=== PATIENT | female | born 1945 | race Caucasian/White ===

== ENCOUNTER 2019-09-30 13:10 | IRF | payer MEDICARE, SELFPAY ==
--- NOTE | ~2019-09-30 | US_ITS ---
US venous doppler [facility] DATE: 10/07/2019 13:58 INDICATION: Left leg pain TECHNIQUE: Real-time and color flow imaging and Doppler analysis of the veins of the left lower extre mity COMPARISON: None FINDINGS: The greater saphenous vein is patent. There is spontaneous and phasic flow and normal augme ntation and color flow signal and normal compression of the deep veins of the left lower extremity. IMPRESSION: No evidence of deep venous thrombosis of left lower extremity Reviewed, dictated and finalized at Location [facility]. Reviewed, dictated and finalized at location A.
--- NOTE | ~2019-09-30 | XR_ITS ---
EXAMINATION: XR_RIBSBI_CR DATE: 10/08/2019 10:54 INDICATION: Posttraumatic pain at the bilateral anterior inferior ribs TECHNIQUE: 3 views of the right ribs and 3 views of the left ribs were obtained. COMPARISON: None FINDINGS: No rib fractures identified. Lungs are clear with no focal airspace opacities, pulmonary edema, pleur al effusion or pneumothorax. The cardiomediastinal silhouette is normal. Atherosclerotic calcific a c yst along the aorta, splenic artery and coronary arteries with likely prior coronary artery stenting. Large-bore dual-lumen right internal jugular central venous catheter with distal tip near the superi or cavoatrial junction. IMPRESSION: 1. No rib fracture or acute cardiopulmonary disease. Reviewed, dictated and finalized at location A.
[2019-09-30 13:00] VITALS: BMI 32.5
--- NOTE | 2019-09-30 13:10 | ADMGEN ---
This patient, Kiara Lebron, was admitted to [facility] Room 221-02. Patient/family oriented to hospital policies and general routines including ID bracelet, bed and alarms, visiting hours, pain management, procedures, bathroom and other care routines, personal items, smoking policy, room service/diet, and visiting hours. Valuables list has been completed. Information on how to activate the Rapid Response Team has been discussed. Patient/Family are encouraged to report perceived risks to care and to ask questions if they do not understand what they are told or what they should do.
[2019-09-30 13:48] VITALS: BP 118/64; PULSE 78; RESP 18; TEMP 36.8; O2SAT 97
[2019-09-30] MEDS: APIXABAN 2.5 MG TABLET PO (17:18)
[2019-09-30] MEDS: FUROSEMIDE 80 MG TABLET PO (17:18)
[2019-09-30] MEDS: TRIAMCINOLONE ACET 0.1% CREAM 15 GM TUBE 1 APPLIC TOPICAL (17:18)
[2019-09-30 17:21] LABS: Glucose Point of Care 116 (65-105)
[2019-09-30] MEDS: ATORVASTATIN 40 MG TABLET PO (20:46)
[2019-09-30] MEDS: GABAPENTIN 100 MG CAPSULE PO (20:46)
[2019-09-30] MEDS: cloNIDine HCL 0.1 MG TABLET PO (20:46)
[2019-09-30] MEDS: MELATONIN 5 MG TABLET PO (20:46)
[2019-09-30] MEDS: ACETAMINOPHEN 500 MG TABLET PO (20:47)
[2019-09-30] MEDS: hydrALAZINE HCL 25 MG TABLET PO (20:47)
[2019-09-30 21:09] LABS: Glucose Point of Care 114 (65-105)
[2019-09-30 22:00] VITALS: BP 101/51; PULSE 75; RESP 18; TEMP 35.8; O2SAT 98
[2019-10-01] MEDS: ACETAMINOPHEN 500 MG TABLET PO (04:41)
[2019-10-01 06:00] VITALS: BP 101/46; PULSE 66; RESP 18; TEMP 35.2; O2SAT 100
[2019-10-01 06:11] LABS: Basophils Percent Auto 0.6 % (0.2-1.2); Eosinophils Absolute Auto 0.3 K/mm3 (0-0.3); Eosinophils Percent Auto 3.6 % (0-4.4); Hematocrit 25.6 % (37.0-47.0); Hemoglobin 8.2 g/dL (12.0-15.0); Immature Granulocyte Absolute 0.06 K/mm3 (0.00-0.031); Immature Granulocyte Percent A 0.9 % (0-0.5); Lymphocytes Absolute Auto 0.64 K/mm3 (0.9-3.2); Lymphocytes Percent Auto 9.1 % (18.3-44.2); Mean Corpuscular Hemoglobin 32.4 pg (26-34); Mean Corpuscular Volume 101.2 fl (80-100); Mean Platelet Volume 9.4 fl (7.4-10.4); Monocytes Absolute Auto 0.7 K/mm3 (0.1-0.6); Monocytes Percent Auto 10.3 % (2.6-8.5); Neutrophils Absolute Auto 5.3 K/mm3 (1.3-6.7); Neutrophils Percent Auto 75.5 % (45.5-73.1); Platelet Count Result 321 k/mm3 (150-375); Red Blood Count 2.53 M/mm3 (4.2-5.4); Red Cell Distribution Width 16.4 % (11.5-14.5)
[2019-10-01 06:45] LABS: Blood Urea Nitrogen 30 mg/dL (7-17); Calcium 8.7 mg/dL (8.4-10.2); Carbon Dioxide 29 mmol/L (22-30); Chloride 87 mmol/L (98-107); Estimated CRCL calculation 10 ml/min; Estimated Glomerular Filt Rate 11; Glucose 75 mg/dL (65-105); Potassium 4.1 mmol/L (3.4-5.0); Sodium 125 mmol/L (137-145)
[2019-10-01 07:16] LABS: Glucose Point of Care 74 (65-105)
[2019-10-01] MEDS: glipiZIDE 5 MG TABLET 10 MG PO (08:47)
[2019-10-01] MEDS: CHOLECALCIFEROL 1,000 UNIT TABLET 2000 UNITS PO (08:48)
[2019-10-01] MEDS: ANASTROZOLE (*CHEMO) 1 MG TABLET PO (08:48)
[2019-10-01] MEDS: SEVELAMER CARBONATE 800 MG TABLET PO (08:48)
[2019-10-01] MEDS: APIXABAN 2.5 MG TABLET PO ×2 (08:48→17:42)
[2019-10-01] MEDS: CYANOCOBALAMIN 1,000 MCG TABLET 1000 MCG PO (08:49)
[2019-10-01 08:50] VITALS: PULSE 66
[2019-10-01] MEDS: FUROSEMIDE 80 MG TABLET PO ×2 (08:50→17:42)
[2019-10-01] MEDS: PANTOPRAZOLE 40 MG TABLET PO (08:50)
[2019-10-01] MEDS: METOPROLOL SUCCINATE EXT REL 100 MG TABCR PO (08:50)
[2019-10-01] MEDS: hydrALAZINE HCL 25 MG TABLET PO ×2 (08:50→20:53)
[2019-10-01] MEDS: CLOPIDOGREL BISULFATE 75 MG TABLET PO (08:50)
[2019-10-01] MEDS: ISOSORBIDE MONONITRATE 60 MG TAB.ER.24H PO (08:50)
[2019-10-01] MEDS: TRIAMCINOLONE ACET 0.1% CREAM 15 GM TUBE 1 APPLIC TOPICAL ×2 (08:51→17:42)
[2019-10-01] MEDS: cloNIDine HCL 0.1 MG TABLET PO ×2 (08:59→20:57)
[2019-10-01] MEDS: polyethylene glycoL 3350 17 GM POWD.PACK PO (08:59)
[2019-10-01] MEDS: VITAMIN B CMPLX/VIT C/FOLIC AC 1 CAPSULE 1 CAP PO (09:04)
--- NOTE | 2019-10-01 10:00 | WPDREHABHP ---
H&P: HPI History of Present Illness Chief complaint: Right BKA Narrative: Kiara Lebron is a 74 year old female HISTORY OF PRESENT ILLNESS: The patient's primary rehab impairment category is amputation lower extremity The etiologic diagnosis is diabetic right foot infection/cellulitis with dry gangrene. I saw this patient [id number] on October 01, 2019 at 10:00 a.m. The patient is a 74-year-old white woman with a past medical history of end-stage renal disease on hemodialysis with the temporary catheter or Port-A-Cath at the right upper chest however also has what is going to be a permanent dialysis catheter in the left arm which has not been activated. Patient also has a history of coronary artery disease peripheral vascular disease and chronic obstructive pulmonary disease who initially presented to [facility] on September 10, 2019 with concern of progressing right lower extremity diabetic foot infection. The patient had an angiogram with Dr. Brock Nunn on September 05, 2019 and since that time the patient noticed that the digits 2325 in the right lower extremity had become increasingly necrotic erythematous and painful. The patient reported close the following with the wound care. The patient was admitted and started on vancomycin and Zosyn. The wound care nephrology and vascular surgery were consulted. Nephrology following patient for hemodialysis recommendations. The patient is on a Saturday and Saturday notation the patient's medications are are renally dosed. She has stage II wound to the right buttocks. Vascular each surgery performed a right 2nd 4th and 5th toe amputation on September 16, 2019. The surgical site did not show proper healing. The patient underwent finally an angiogram on September 21, 2019 that showed occlusion in the right anterior and posterior tibial arteries so vascular surgery then recommended a right [id number] amputation. IV Zosyn was discontinued on September 22, 2019. The patient underwent surgical amputation on September 27, [address] Brock Nunn. The patient is nonweightbearing to the right lower extremity and patient has a wound to the left lower extremity covered with a foam dressing. Eliquis and Plavix were restarted on September 28, 2019. The patient's hospital course has been significant for acute postoperative pain acute blood-loss anemia, wound care, hemodialysis, electrolyte imbalance and hypertension. It is worth mentioning the sodium is still running about 125 however the potassium is 4.1 the patient's BUN and creatinine obviously are high because of end-stage renal disease. The patient is discharged to us with Eliquis and Plavix Plavix and will remain on both The patient has not traveled outside the [place] or had contact with someone who is ill that has traveled outside the use in the past 21 days. The patient's has not traveled to an area of the [place] that is experiencing no transmission of the Coronavirus and has not had close personal contact with anyone that has. The patient does not have a fever. The patient is not experiencing any lower respiratory symptoms. Therapy was initiated at the acute care facility and the patient transferred to us from [facility] on September 30, 2019 on FALLS OR SURGERIES: The patient has had no major surgeries in the 100 days prior to admission. They had no falls in the past year. They had falls with injury in the past year. the patient has had 1 major surgery in the 100 days prior to admission. The patient has had 2 or more falls in the past year. The patient has had no falls with injury in the past PAST MEDICAL HISTORY: anemia, breast cancer, coronary artery disease, non ST elevation [place], congestive heart failure, chronic respiratory failure, chronic obstructive pulmonary disease, diabetes mellitus with peripheral neuropathy, end-stage renal disease on hemodialysis, essential hypertension, left upper extremity fistula, harm on replacement therapy, hype
[2019-10-01] MEDS: PROCHLORPERAZINE MALEATE 5 MG TABLET PO (10:52)
[2019-10-01 12:08] LABS: Glucose Point of Care 57 (65-105)
[2019-10-01 12:08] LABS: Glucose Point of Care 46 (65-105)
[2019-10-01 13:16] VITALS: BMI 31.6
[2019-10-01 13:44] LABS: Glucose Point of Care 60 (65-105)
[2019-10-01 13:44] LABS: Glucose Point of Care 80 (65-105)
[2019-10-01 14:00] VITALS: BP 134/44; PULSE 72; RESP 20; TEMP 36.6; O2SAT 100
--- NOTE | 2019-10-01 16:04 | PCCCNOTE ---
On 10/01/19, the student, [Ronen Muhammad ], provided care and completed [facility] documentation on this patient. I have reviewed the student's documentation and agree with the findings.
--- NOTE | 2019-10-01 16:42 | RPD ---
INDIVIDUALIZED PLAN OF CARE FOR Kiara Lebron Brief Synthesis of Pre-Admission Screen, Post-Admission Evaluation and Therapy Evaluations: The patient presents to rehab with diabetic right foot infection/cellulitis with dry gangrene. 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 The patient?s needs will be best met in an intensive program vs. at a lower level of care. The patient requires physician services for medical oversight, management of post-op complications in the setting of present comorbidities, management of diabetes mellitus diagnosis, management of hemodialysis, and pain management. The patient requires nursing services for anticoagulation therapy, diabetes training, DVT prophylactics, IV administration, infection protection, medication management and education, pressure relief, and wound care Deficits include:ADLs, Balance, Endurance, Family Training/Education, Mobility, Pain Management, ROM, Safety, Strength, and Transfers. Inside Sales Professional/Case Management for: Discharge Planning and Patient/Family Counseling Physical Therapy: 5 days per week for 90 minutes. Treatments may include: Therapeutic Exercise, Gait Training, Neuromuscular Re-education, Transfer Training, Community Reintegration, Bed Mobility, Patient/Family Education, Wheelchair Mobility Group Therapy/Concurrent Therapy Rationales: -Improve attention span during functional activities in a distracted environment. -Enhance problem solving and/or adequate judgment skills during functional activities in a distracted environment. -Promote increased safety awareness in a distracted environment to reduce fall risk with functional tasks, transfers, and ambulation to allow a more safe, self-sufficient return to the home environment. -Improve dynamic balance skills to promote safety and independence with functional activities in a distracted environment for maximum gain. Occupational Therapy: 5 days per week for 90 minutes. Treatments may include: Therapeutic Exercise, Therapeutic Activity, Cognitive Training, Self-Care Transfer Training, Community Reintegration, Home Management, Patient/Family Education, Wheelchair Mobility Training, Energy Conservation Training Group Therapy/Concurrent Therapy Rationales: -Allow therapist to observe and teach generalization and carry-over of skills learned in individual therapy. -Enhance problem solving and sequencing skills during therapeutic activities in a distracted environment. -Promote increased safety awareness in a realistic setting to reduce fall risk with functional tasks due to visual and verbal distractions. -Increase functional level with ADLs, ADL transfers and use of adaptive equipment through therapeutic activities with others while promoting safety to allow a more safe, self-sufficient return home. Medical Prognosis: Good Anticipated Length of Stay: 12 days Rehab Goals: Eating Goal: 06-Independent Oral Hygiene Goal: 06-Independent Toileting Hygiene Goal: 03-Partial/Moderate Assistance Shower/Bathe Self Goal: 03-Partial/Moderate Assistance Upper Body Dressing Goal: 06-Independent Lower Body Dressing Goal: 03-Partial/Moderate Assistance Putting On/Taking Off Footwear Goal: 04-Supervision or Touching Assistance Rolling Left and Right Goal: 06-Independent Sit to Lying Goal: 06-Independent Lying to Sitting on Side of Bed Goal: 06-Independent Sit to Stand Goal: 03-Partial/Moderate Assistance Chair/Uqz-tj-Wepnl Transfer Goal: 06-Independent Toilet Transfer Goal: 03-Partial/Moderate Assistance Car Transfer Goal: 03-Partial/Moderate Assistance Walk 10' Goal: 03-Partial/Moderate Assistance Walk 50' with Two Turns Goal:
[2019-10-01 17:19] LABS: Glucose Point of Care 46 (65-105)
[2019-10-01] MEDS: GABAPENTIN 100 MG CAPSULE PO (20:53)
[2019-10-01] MEDS: ATORVASTATIN 40 MG TABLET PO (20:55)
[2019-10-01 22:00] VITALS: BP 101/40; PULSE 65; RESP 18; TEMP 36.6; O2SAT 92
[2019-10-01 22:10] LABS: Glucose Point of Care 76 (65-105)
[2019-10-01 22:10] LABS: Glucose Point of Care 52 (65-105)
[2019-10-01 23:48] LABS: Glucose Point of Care 50 (65-105)
[2019-10-02] VITALS (17 sets, daily range): BP systolic 105–156; BP diastolic 40–69; PULSE 66–86; RESP 16–20; TEMP 36.2–37.5; O2SAT 96–100; BMI 33.1
[2019-10-02 00:23] LABS: Glucose Point of Care 75 (65-105)
[2019-10-02 03:16] LABS: Glucose Point of Care 72 (65-105)
[2019-10-02 04:04] LABS: Glucose Point of Care 53 (65-105)
[2019-10-02 04:56] LABS: Glucose Point of Care 69 (65-105)
[2019-10-02 05:26] LABS: Glucose Point of Care 108 (65-105)
[2019-10-02 06:57] LABS: Glucose Point of Care 62 (65-105)
[2019-10-02 07:20] LABS: Glucose Point of Care 51 (65-105)
[2019-10-02 08:37] LABS: Glucose Point of Care 90 (65-105)
[2019-10-02] MEDS: SEVELAMER CARBONATE 800 MG TABLET PO (09:47)
[2019-10-02] MEDS: CLOPIDOGREL BISULFATE 75 MG TABLET PO (09:48)
[2019-10-02] MEDS: CHOLECALCIFEROL 1,000 UNIT TABLET 2000 UNITS PO (09:48)
[2019-10-02] MEDS: PROCHLORPERAZINE MALEATE 5 MG TABLET PO ×2 (09:48→19:12)
[2019-10-02] MEDS: ANASTROZOLE (*CHEMO) 1 MG TABLET PO (09:49)
[2019-10-02] MEDS: ISOSORBIDE MONONITRATE 60 MG TAB.ER.24H PO (09:49)
[2019-10-02] MEDS: METOPROLOL SUCCINATE EXT REL 100 MG TABCR PO (09:49)
[2019-10-02] MEDS: APIXABAN 2.5 MG TABLET PO ×2 (09:49→19:11)
[2019-10-02] MEDS: CYANOCOBALAMIN 1,000 MCG TABLET 1000 MCG PO (09:49)
[2019-10-02] MEDS: FUROSEMIDE 80 MG TABLET PO ×2 (09:49→19:11)
[2019-10-02] MEDS: hydrALAZINE HCL 25 MG TABLET PO ×2 (09:49→19:11)
[2019-10-02] MEDS: VITAMIN B CMPLX/VIT C/FOLIC AC 1 CAPSULE 1 CAP PO (09:50)
[2019-10-02] MEDS: PANTOPRAZOLE 40 MG TABLET PO (09:50)
[2019-10-02] MEDS: TRIAMCINOLONE ACET 0.1% CREAM 15 GM TUBE 1 APPLIC TOPICAL ×2 (09:50→19:11)
[2019-10-02] MEDS: cloNIDine HCL 0.1 MG TABLET PO ×2 (09:56→19:11)
[2019-10-02] MEDS: polyethylene glycoL 3350 17 GM POWD.PACK PO (09:56)
[2019-10-02 10:33] LABS: Glucose Point of Care 55 (65-105)
[2019-10-02 10:33] LABS: Glucose Point of Care 54 (65-105)
[2019-10-02 10:33] LABS: Glucose Point of Care 46 (65-105)
[2019-10-02 11:17] LABS: Glucose Point of Care 71 (65-105)
[2019-10-02 12:06] LABS: Glucose Point of Care 82 (65-105)
[2019-10-02 12:59] LABS: Hepatitis B Surface Antigen Negative (Negative)
[2019-10-02 13:16] LABS: Hepatitis B Surface Antibody > 1000.00 s/c
[2019-10-02 13:18] LABS: Glucose Point of Care 70 (65-105)
--- NOTE | 2019-10-02 13:38 | WPDNEURORHBP ---
Subjective Date/time seen: 10/02/19 13:38 this 74-year-old woman is here primarily because of right BKA and also with the ischemic changes in the left foot which is stable she denies any headache nausea vomiting chest pain shortness of breath fever chills or sore throat her blood pressure is running little be high however it may be her baseline Review of Systems Review of Systems: All systems reviewed & are unremarkable except as noted in HPI and below Functional Status Transfers Ability Ability to Transfer In/Out of Chair: Maximum Assistance X 1 Exam Const: General: comfortable and no acute distress HENMT: General nose exam: Normal nares present Mouth: Yes moist mucous membranes Eyes: General: appearance normal, both eyes and all related structures Neck: Neck: supple and no JVD Resp: Effort & Inspection: normal respiratory effort Auscultation: clear to auscultation bilaterally Cardio: Rate: regular rate Rhythm: regular rhythm GI: GI Palp: Yes Soft to palpation Auscultation: normal bowel sounds Skin: General skin exam: normal color and no rashes or lesions noted Neuro: Other: patient is awake alert well oriented has evidence of peripheral neuropathy right BKA and ischemic changes of the left foot which is stable no sign of infection is noted Extrem: Other: evidence of peripheral neuropathy and peripheral vascular disease and right BKA and ischemic changes of the left foot Psych: Mental Status: mental status grossly normal Objective Data Vital Signs Vital Signs: Vital Signs - 24 hr 10/02/19 14:00 10/02/19 14:20 10/02/19 14:41 Temperature 36.8 C 37.1 C Pulse Rate 76 73 71 Respiratory Rate 20 16 Blood Pressure 123/40 L 130/50 L 125/51 L Pulse Oximetry 96 10/02/19 14:45 10/02/19 15:00 10/02/19 15:15 Temperature Pulse Rate 73 71 76 Respiratory Rate Blood Pressure 105/54 L 108/48 L 144/53 H Pulse Oximetry 10/02/19 15:30 10/02/19 16:00 10/02/19 16:30 Temperature Pulse Rate 73 78 78 Respiratory Rate Blood Pressure 144/45 H 151/67 H 135/51 L Pulse Oximetry 10/02/19 16:45 10/02/19 17:00 10/02/19 17:30 Temperature Pulse Rate 79 86 81 Respiratory Rate Blood Pressure 136/52 L 146/58 H 156/61 H Pulse Oximetry 10/02/19 17:45 10/02/19 17:50 10/02/19 22:00 Temperature 37.1 C 37.5 C Pulse Rate 82 82 82 Respiratory Rate 20 20 Blood Pressure 148/60 H 152/66 H 121/69 Pulse Oximetry 97 10/03/19 06:00 10/03/19 09:11 10/03/19 12:10 Temperature 36.7 C 37.0 C Pulse Rate 88 88 75 Respiratory Rate 16 16 Blood Pressure 131/55 L 127/51 L Pulse Oximetry 100 10/03/19 12:20 10/03/19 12:30 10/03/19 12:45 Temperature Pulse Rate 76 77 73 Respiratory Rate Blood Pressure 127/45 L 152/56 H 158/58 H Pulse Oximetry 10/03/19 13:00 10/03/19 13:15 10/03/19 13:30 Temperature Pulse Rate 74 78 79 Respiratory Rate Blood Pressure 171/56 H 174/64 H 169/59 H Pulse Oximetry Intake/Output Intake/Output: Intake & Output 09/30/19 10/01/19 10/02/19 10/03/19 23:59 23:59 23:59 23:59 Intake Total 459 057 5322 240 Output Total 2100 Balance 240 600 -1020 240 Meds/Results Medications: Active Medications Generic Name Dose Route Start Last Admin Trade Name Freq PRN Reason Stop Dose Admin Acetaminophen 500 mg 09/30/19 14:48 10/01/19 04:41 Tylenol Tablet PO 500 mg Q6H PRN Administration Pain (Scale Score 4-6) Hydrocodone Bitart/Acetaminophen 1 tab 09/30/19 14:48 10/03/19 11:39 [place] 7.5-325 Mg PO 1 tab Q4H PRN Administration Pain (Scale Score 7-10) Albuterol 2 puff 09/30/19 16:52 Proventil Hfa INHALATION 10/14/19 16:48 QIDRT PRN Wheezing Anastrozole 1 mg 10/01/19 09:00 10/03/19 08:59 Arimidex PO 10/31/19 09:01 1 mg DAILY MAYLIN Administration Apixaban 2.5 mg 09/30/19 17:00 10/03/19 09:00 Eliquis PO 2.5 mg BID MAYLIN Administration Atorvastatin Calcium 40 mg
[2019-10-02 13:51] LABS: Hepatitis B Surface Anti Res Positive
--- NOTE | 2019-10-02 15:17 | PM.CNNEP ---
Assessment and Plan Assessment and plan (1) End stage renal disease: Code(s): N18.6 - End stage renal disease Status: Acute Assessment and Plan: Kiara has end-stage renal disease. She was due for dialysis yesterday. We were not informed of her admission till late last night. So will do her today and then again tomorrow to get her back on schedule. Will take a little bit of fluid off and watch her electrolytes and BUN. (2) Congestive heart failure: Code(s): I50.9 - Heart failure, unspecified Status: Acute Assessment and Plan: The patient looks euvolemic right now. Take a little bit of fluid off today. (3) Coronary artery disease: Code(s): I25.10 - Atherosclerotic heart disease of [place] coronary artery without angina pectoris Status: Acute Assessment and Plan: She had a recent myocardial infarction and stents placed. She is not having any current chest pain or shortness of breath. (4) Peripheral vascular disease: Code(s): I73.9 - Peripheral vascular disease, unspecified Status: Acute Assessment and Plan: She has a [id number] amputation from this. 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 (6) Diabetic infection of right foot: Code(s): E11.628 - Type 2 diabetes mellitus with other skin complications; L08.9 - Local infection of the skin and subcutaneous tissue, unspecified Status: Acute Assessment and Plan: She has no fever. Her white count is okay. History of Present Illness Reason for Consult Consult date: 10/02/19 Chief Complaint Chief complaint: Right BKA History of Present Illness Narrative: Kiara is a very pleasant 74-year-old lady who has multiple medical problems including end-stage renal disease on dialysis 3 times a week, diabetes, peripheral vascular disease status post right vpral-ojy-[id number] amputation, left great toe scab, coronary disease with a stent, renal vascular hypertension with a stent many years ago, renal osteodystrophy, anemia of chronic kidney disease. The patient was doing okay until she stubbed her right great toe on base board. This developed into a sore. Then apparently over the next few days sores developed on the tips of the 2nd 3rd and 4th toes as well. The patient went to the hospital. She was admitted. She was given IV antibiotics. She had dialysis. Things worsen then she eventually had to have a below the knee amputation. This was done last . The sonia are still in and the wound still intact apparently. Because of the amputation she was sent to rehab here for further strengthening and dialysis. Currently the patient feels okay. She does not have any chest pain or shortness of breath. No belly problems or skin problems. She did have low sugars this morning. She was given food and some D50 and it is a little bit better. The patient has diabetes. This is been going on for many years. She does not have retinopathy. Her sugars are up and down some. The patient has end-stage renal disease. She has been on dialysis for about a year. She had a catheter right from the beginning. The patient had a fistula placed in left arm but this failed and so this was switched to a graft about 5 weeks ago. Because of the hospitalization they have continued to use the catheter and Dr. Nunn has not cleared her access for being used. She says that she has pretty good labs. Her phosphorus is under pretty good control. She takes her binders. Patient recently had a heart attack when they are working on her arm. This led to a stent. Review of Systems Constitutional: Constitutional: Reports no additional constitutional complaints Eyes: Eyes: Reports no additional eye complaints EN
--- NOTE | 2019-10-02 15:37 | PM.EVENT ---
Event Note Event Note Event Note: Patient is on dialysis. She is tolerating this well. Blood pressure is doing pretty well. She has dialed in to take 1-2 L off as tolerated by blood pressure. She was seen at 3:20 p.m.
[2019-10-02 15:42] LABS: Glucose Point of Care 73 (65-105)
[2019-10-02 16:56] LABS: Glucose Point of Care 76 (65-105)
--- NOTE | 2019-10-02 17:46 | PM.IMCN ---
Assessment and Plan Assessment and plan (1) Diabetic infection of right foot: Code(s): E11.628 - Type 2 diabetes mellitus with other skin complications; L08.9 - Local infection of the skin and subcutaneous tissue, unspecified Status: Acute Assessment and Plan: Kiara Lebron is a 74 year old female with history of end-stage renal disease on hemodialysis, diabetes status post right BKA after patient was diagnosed with severe diabetic wound, the patient is here in [facility] for rehab, for diabetes patient was given glipizide 10 mg, however patient has not received her scheduled dialysis yesterday, today patient is running hypoglycemia most likely secondary to persistent glipizide and her system, patient was given glucose gel and encourage to have her breakfast and lunch, patient is clinically stable, her blood sugars are trending up, does not appear to be any distress. Patient will be seen by paediatric thoracic physician and is scheduled to have a dialysis today, will continue to monitor patient blood sugar plan accordingly, once patient is clinically stable will start the patient on low-dose of glipizide 2.5 mg daily and monitor (2) Hemodialysis patient: Code(s): Z99.2 - Dependence on renal dialysis Status: Acute Assessment and Plan: Patient seen by paediatric thoracic physician and will have scheduled dialysis HPI Data of Consult Consult date: 10/02/19 Requesting Physician: Tani Dempsey MD Primary Care Provider: Brock Nunn, Family Provider: Irma Land, Consult Narrative Narrative: Kiara Lebron is a 74 year old female with history of end-stage renal disease on hemodialysis, diabetes status post right BKA after patient was diagnosed with severe diabetic wound, the patient is here in [facility] for rehab, for diabetes patient was given glipizide 10 mg, however patient has not received her scheduled dialysis yesterday, today patient is running hypoglycemia most likely secondary to persistent glipizide and her system, patient was given glucose gel and encourage to have her breakfast and lunch, patient is clinically stable, her blood sugars are trending up, does not appear to be any distress. Patient will be seen by paediatric thoracic physician and is scheduled to have a dialysis today, will continue to monitor patient blood sugar plan accordingly, once patient is clinically stable will start the patient on low-dose of glipizide 2.5 mg daily and monitor Review of Systems Review of Systems: All systems reviewed & are unremarkable except as noted in HPI and below PMFSH Past Medical History Medical History Chronic respiratory failure Congestive heart failure Coronary artery disease Diabetic infection of right foot End stage renal disease Hemodialysis patient Obesity Peripheral vascular disease Family History Family History Father Congestive heart failure Social History Social History Smoking status: Former smoker Smoking end date: 09/30/19 Alcohol intake: never Substance use: never Spiritual care concerns: No Meds Home Medications and Allergies Home Medications Medication Instructions Recorded Confirmed Type B complex-vitamin C-folic acid 1 tablet PO DAILY 09/30/19 09/30/19 History acetaminophen [Tylenol Extra 500 mg PO Q6H PRN MDD 4000mg 09/30/19 09/30/19 History Strength] albuterol sulfate [ProAir HFA] 2 puff INHALATION QID 09/30/19 09/30/19 History anastrozole [Arimidex] 1 mg PO DAILY 09/30/19 09/30/19 History apixaban 2.5 mg PO BID 09/30/19 09/30/19 History atorvastatin 40 mg PO HS 09/30/19 09/30/19 History cholecalciferol (vitamin D3) 50 mcg PO DAILY 09/30/19 09/30/19 History clonidine HCl 0.1 mg PO BID 09/30/19 09/30/19 History clopidogrel [Plavix] 75 mg PO DAILY 09/30/19 09/30/19 History fexofenadine [Emely Allergy] 180 mg PO DAILY PRN
[2019-10-02] MEDS: GABAPENTIN 100 MG CAPSULE PO (19:11)
[2019-10-02] MEDS: ATORVASTATIN 40 MG TABLET PO (19:11)
[2019-10-02 21:17] LABS: Glucose Point of Care 136 (65-105)
[2019-10-02] MEDS: MELATONIN 5 MG TABLET PO (22:56)
[2019-10-03] VITALS (20 sets, daily range): BP systolic 127–185; BP diastolic 45–72; PULSE 55–88; RESP 16–18; TEMP 36.1–37.4; O2SAT 96–100
[2019-10-03 05:07] LABS: Potassium 4.5 mmol/L (3.4-5.0)
[2019-10-03 05:17] LABS: Albumin Level 2.6 g/dL (3.5-5.1); Blood Urea Nitrogen 21 mg/dL (7-17); Calcium 8.2 mg/dL (8.4-10.2); Carbon Dioxide 28 mmol/L (22-30); Chloride 92 mmol/L (98-107); Estimated CRCL calculation 14 ml/min; Estimated Glomerular Filt Rate 16; Glucose 88 mg/dL (65-105); Phosphorus 3.8 mg/dL (2.5-4.5); Sodium 127 mmol/L (137-145)
[2019-10-03 06:46] LABS: Glucose Point of Care 89 (65-105)
[2019-10-03] MEDS: SEVELAMER CARBONATE 800 MG TABLET PO (08:59)
[2019-10-03] MEDS: ANASTROZOLE (*CHEMO) 1 MG TABLET PO (08:59)
[2019-10-03] MEDS: APIXABAN 2.5 MG TABLET PO ×2 (09:00→16:45)
[2019-10-03] MEDS: hydrALAZINE HCL 25 MG TABLET PO ×2 (09:01→20:47)
[2019-10-03] MEDS: CLOPIDOGREL BISULFATE 75 MG TABLET PO (09:01)
[2019-10-03] MEDS: CHOLECALCIFEROL 1,000 UNIT TABLET 2000 UNITS PO (09:01)
[2019-10-03] MEDS: FUROSEMIDE 80 MG TABLET PO ×2 (09:01→16:45)
[2019-10-03] MEDS: CYANOCOBALAMIN 1,000 MCG TABLET 1000 MCG PO (09:01)
[2019-10-03] MEDS: PANTOPRAZOLE 40 MG TABLET PO (09:02)
[2019-10-03] MEDS: ISOSORBIDE MONONITRATE 60 MG TAB.ER.24H PO (09:02)
[2019-10-03] MEDS: VITAMIN B CMPLX/VIT C/FOLIC AC 1 CAPSULE 1 CAP PO (09:02)
[2019-10-03] MEDS: cloNIDine HCL 0.1 MG TABLET PO ×2 (09:11→20:50)
[2019-10-03] MEDS: METOPROLOL SUCCINATE EXT REL 100 MG TABCR PO (09:11)
[2019-10-03] MEDS: polyethylene glycoL 3350 17 GM POWD.PACK PO (09:12)
[2019-10-03 12:28] LABS: Glucose Point of Care 213 (65-105)
[2019-10-03] MEDS: TRIAMCINOLONE ACET 0.1% CREAM 15 GM TUBE 1 APPLIC TOPICAL ×2 (12:30→18:54)
--- NOTE | 2019-10-03 12:54 | PM.PNNEP ---
Progress Note: A&P Assessment and Plan (1) End stage renal disease: Code(s): N18.6 - End stage renal disease Status: Acute Assessment and Plan: Kiara has end-stage renal disease. HD now and then TTS (2) Congestive heart failure: Code(s): I50.9 - Heart failure, unspecified Status: Acute Assessment and Plan: The patient looks euvolemic right now. Take a little bit of fluid off today. (3) Coronary artery disease: Code(s): I25.10 - Atherosclerotic heart disease of [place] coronary artery without angina pectoris Status: Acute Assessment and Plan: She had a recent myocardial infarction and stents placed. NO CP or SOB (4) Peripheral vascular disease: Code(s): I73.9 - Peripheral vascular disease, unspecified Status: Acute Assessment and Plan: She has a [id number] amputation from this. wound healing. some understandable discomfort at wound site. 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 (6) Diabetic infection of right foot: Code(s): E11.628 - Type 2 diabetes mellitus with other skin complications; L08.9 - Local infection of the skin and subcutaneous tissue, unspecified Status: Acute Assessment and Plan: She has no fever. Her white count is okay. Subjective Date/time seen: 10/03/19 12:54 Interval history: ON HD jesika it well. seen at 12:50 pm bp is okay. somewhat uncomfortable with pain in the stump leg. Review of Systems Cardiovascular: Cardiovascular: Reports no additional cardiovascular complaints Respiratory: Respiratory: Reports no additional respiratory complaints Gastrointestinal: Gastrointestinal: Reports no additional gastrointestinal complaints Genitourinary: Genitourinary: Reports no additional female genitourinary complaints Exam Narrative: Exam Narrative: WDWN in NAD skin no rash head ncat lungs clear cor reg no rub abd BS+ nontender and soft ext no edema. Objective Data Vital Signs Vital Signs: Vital Signs - 24 hr 10/02/19 14:00 10/02/19 14:20 10/02/19 14:41 Temperature 36.8 C 37.1 C Pulse Rate 76 73 71 Respiratory Rate 20 16 Blood Pressure 123/40 L 130/50 L 125/51 L Pulse Oximetry 96 10/02/19 14:45 10/02/19 15:00 10/02/19 15:15 Temperature Pulse Rate 73 71 76 Respiratory Rate Blood Pressure 105/54 L 108/48 L 144/53 H Pulse Oximetry 10/02/19 15:30 10/02/19 16:00 10/02/19 16:30 Temperature Pulse Rate 73 78 78 Respiratory Rate Blood Pressure 144/45 H 151/67 H 135/51 L Pulse Oximetry 10/02/19 16:45 10/02/19 17:00 10/02/19 17:30 Temperature Pulse Rate 79 86 81 Respiratory Rate Blood Pressure 136/52 L 146/58 H 156/61 H Pulse Oximetry 10/02/19 17:45 10/02/19 17:50 10/02/19 22:00 Temperature 37.1 C 37.5 C Pulse Rate 82 82 82 Respiratory Rate 20 20 Blood Pressure 148/60 H 152/66 H 121/69 Pulse Oximetry 97 10/03/19 06:00 10/03/19 09:11 10/03/19 12:10 Temperature 36.7 C 37.0 C Pulse Rate 88 88 75 Respiratory Rate 16 16 Blood Pressure 131/55 L 127/51 L Pulse Oximetry 100 10/03/19 12:20 10/03/19 12:30 Temperature Pulse Rate 76 77 Respiratory Rate Blood Pressure 127/45 L 152/56 H Pulse Oximetry Intake/Output Intake/Output: Intake & Output 09/30/19 10/01/19 10/02/19 10/03/19 23:59 23:59 23:59 23:59 Intake Total 722 208 3289 240 Output Total 2100 Balance 240 600 -1020 240 Meds/Results Medications: Active Medications Generic Name Dose Route Start Last Admin Trade Name Freq PRN Reason Stop Dose Admin Acetaminophen 500 mg 09/30/19 14:48 10/01/19 04:41 Tylenol Tablet PO 500 mg Q6H PRN Administration Pain (Scale Score 4-6) Hydrocodone Bitart/Acetam
[2019-10-03] MEDS: EPOETIN ALFA-EPBX 10,000 UNITS/ML VIAL 10000 UNITS IV PUSH (14:21)
--- NOTE | 2019-10-03 14:37 | WPDNEURORHBP ---
Subjective Date/time seen: 10/03/19 14:38 Interval history: this 74-year-old woman is here primarily because of right BKA along with the associated peripheral neuropathy peripheral vascular disease she also is a dialysis patient and receiving the dialysis when this patient when this examiner examined her she denies any headache nausea vomiting chest pain shortness of breath fever chills sore throat Review of Systems Review of Systems: All systems reviewed & are unremarkable except as noted in HPI and below Functional Status Transfers Ability Ability to Transfer In/Out of Chair: Maximum Assistance X 1 Exam Const: General: comfortable and no acute distress HENMT: General nose exam: Normal nares present Mouth: Yes moist mucous membranes Eyes: General: appearance normal, both eyes and all related structures Neck: Neck: supple and no JVD Resp: Effort & Inspection: normal respiratory effort Auscultation: clear to auscultation bilaterally Cardio: Rate: regular rate Rhythm: regular rhythm GI: GI Palp: Yes Soft to palpation Auscultation: normal bowel sounds Skin: General skin exam: normal color and no rashes or lesions noted Neuro: Other: patient is awake and alert well oriented follows all commands she has weakness of both upper lower extremities which is improving right BKA is stable she does have evidence of peripheral neuropathy and peripheral vascular disease Extrem: Other: the site of the dialysis catheter is functioning well I saw this patient in the dialysis unit Psych: Mental Status: mental status grossly normal Objective Data Vital Signs Vital Signs: Vital Signs - 24 hr 10/02/19 14:41 10/02/19 14:45 10/02/19 15:00 Temperature Pulse Rate 71 73 71 Respiratory Rate Blood Pressure 125/51 L 105/54 L 108/48 L Pulse Oximetry 10/02/19 15:15 10/02/19 15:30 10/02/19 16:00 Temperature Pulse Rate 76 73 78 Respiratory Rate Blood Pressure 144/53 H 144/45 H 151/67 H Pulse Oximetry 10/02/19 16:30 10/02/19 16:45 10/02/19 17:00 Temperature Pulse Rate 78 79 86 Respiratory Rate Blood Pressure 135/51 L 136/52 L 146/58 H Pulse Oximetry 10/02/19 17:30 10/02/19 17:45 10/02/19 17:50 Temperature 37.1 C Pulse Rate 81 82 82 Respiratory Rate 20 Blood Pressure 156/61 H 148/60 H 152/66 H Pulse Oximetry 10/02/19 22:00 10/03/19 06:00 10/03/19 09:11 Temperature 37.5 C 36.7 C Pulse Rate 82 88 88 Respiratory Rate 20 16 Blood Pressure 121/69 131/55 L Pulse Oximetry 97 100 10/03/19 12:10 10/03/19 12:20 10/03/19 12:30 Temperature 37.0 C Pulse Rate 75 76 77 Respiratory Rate 16 Blood Pressure 127/51 L 127/45 L 152/56 H Pulse Oximetry 10/03/19 12:45 10/03/19 13:00 10/03/19 13:15 Temperature Pulse Rate 73 74 78 Respiratory Rate Blood Pressure 158/58 H 171/56 H 174/64 H Pulse Oximetry 10/03/19 13:30 10/03/19 13:45 10/03/19 14:00 Temperature Pulse Rate 79 79 79 Respiratory Rate Blood Pressure 169/59 H 169/59 H 139/52 L Pulse Oximetry 10/03/19 14:15 10/03/19 14:30 Temperature Pulse Rate 76 88 Respiratory Rate Blood Pressure 185/59 H 160/72 H Pulse Oximetry Intake/Output Intake/Output: Intake & Output 09/30/19 10/01/19 10/02/19 10/03/19 23:59 23:59 23:59 23:59 Intake Total 972 795 7052 480 Output Total 2100 Balance 240 600 -1020 480 Meds/Results Medications: Active Medications Generic Name Dose Route Start Last Admin Trade Name Freq PRN Reason Stop Dose Admin Acetaminophen 500 mg 09/30/19 14:48 10/01/19 04:41 Tylenol Tablet PO 500 mg Q6H PRN Administration Pain (Scale Score 4-6) Hydrocodone Bitart/Acetaminophen 1 tab 09/30/19 14:48 10/03/19 11:39 [place] 7.5-325 Mg PO 1 tab Q4H PRN Administration Pain (Scale Score 7-10) Albuterol 2 puff 09/30/19 16:52 Proventil Hfa INHALATION 10/14/19 16:48 QIDRT PRN Wheezing Anastrozole 1 mg 10/01/19 09:00
[2019-10-03] MEDS: HEPARIN SODIUM 1,000 UNITS/ML VIAL 1000 UNITS IV PUSH (15:42)
[2019-10-03 17:05] LABS: Glucose Point of Care 184 (65-105)
--- NOTE | 2019-10-03 17:10 | PM.IMPN ---
Progress Note: A&P Assessment and Plan (1) Diabetic infection of right foot: Code(s): E11.628 - Type 2 diabetes mellitus with other skin complications; L08.9 - Local infection of the skin and subcutaneous tissue, unspecified Status: Acute Assessment and Plan: 10/03/19 17:10 Kiara Lebron is a 74 year old female with history of end-stage renal disease on hemodialysis, diabetes status post right BKA after patient was diagnosed with severe diabetic wound, the patient is here in [facility] for rehab, for diabetes patient was given glipizide 10 mg, however patient has not received her scheduled dialysis yesterday, today patient is running hypoglycemia most likely secondary to persistent glipizide and her system, patient was given glucose gel and encourage to have her breakfast and lunch, patient is clinically stable, her blood sugars are trending up, does not appear to be any distress. Patient was seen by felter tennis balls and had dialysis on 10/01, and glipizide was dialyzed, today patient blood sugars are trending up and patient additional dialysis today, will continue to monitor patient blood sugar once patient blood sugars stabilized, may add low-dose glipizide 2.5 mg daily and monitor, patient is feeling much better compared to yesterday will continue to monitor (2) Hemodialysis patient: Code(s): Z99.2 - Dependence on renal dialysis Status: Acute Assessment and Plan: Patient seen by felter tennis balls and will have scheduled dialysis Subjective Date/time seen: 10/03/19 17:10 Kiara Lebron is a 74 year old female with history of end-stage renal disease on hemodialysis, diabetes status post right BKA after patient was diagnosed with severe diabetic wound, the patient is here in [facility] for rehab, for diabetes patient was given glipizide 10 mg, however patient has not received her scheduled dialysis yesterday, today patient is running hypoglycemia most likely secondary to persistent glipizide and her system, patient was given glucose gel and encourage to have her breakfast and lunch, patient is clinically stable, her blood sugars are trending up, does not appear to be any distress. Patient was seen by felter tennis balls and had dialysis on 10/01, and glipizide was dialyzed, today patient blood sugars are trending up and patient additional dialysis today, will continue to monitor patient blood sugar once patient blood sugars stabilized, may add low-dose glipizide 2.5 mg daily and monitor, patient is feeling much better compared to yesterday will continue to monitor Review of Systems Review of Systems: All systems reviewed & are unremarkable except as noted in HPI and below Exam Const: General: comfortable and no acute distress HENMT: General nose exam: Normal nares present Eyes: General: appearance normal, both eyes and all related structures Sclera: sclerae normal Neck: Neck: supple Resp: Effort & Inspection: normal respiratory effort Auscultation: clear to auscultation bilaterally Cardio: Rate: regular rate Rhythm: regular rhythm GI: Auscultation: normal bowel sounds Skin: General skin exam: normal color Neuro: Speech: normal speech Sensory Exam: normal sensation Extrem: Other: Right BKA stump in dressing Psych: Affect: Anxious affect present Objective Data Vital Signs Vital Signs: Vital Signs - 24 hr 10/02/19 17:30 10/02/19 17:45 10/02/19 17:50 Temperature 98.8 F Pulse Rate 81 82 82 Respiratory Rate 20 Blood Pressure 156/61 H 148/60 H 152/66 H Pulse Oximetry 10/02/19 22:00 10/03/19 06:00 10/03/19 09:11 Temperature 99.5 F 98.1 F Pulse Rate 82 88 88 Respiratory Rate 20 16 Blood Pressure 121/69 131/55 L Pulse Oximetry 97 100 10/03/19 12:10 10/03/19 12:20 10/03/19 12:30 Temperature 98.6 F Pulse Rate 75 76 77 Respiratory Rate 16 Blood Pressure 127/51 L 127/45 L 152/56 H Pulse Oximetry 10/03/19 12:45 10/03/19 13:00 10/03/19 13:15 Temperature Pulse Rate 73 74 78
--- NOTE | 2019-10-03 19:44 | PC.NURSE ---
stump on right dsg changed sonia intact-adaptic, gauze fluffs, kerlix and brandon wrap. Also betadined left great toe and heel.
[2019-10-03] MEDS: ATORVASTATIN 40 MG TABLET PO (20:46)
[2019-10-03] MEDS: GABAPENTIN 100 MG CAPSULE PO (20:48)
[2019-10-04 04:17] LABS: Glucose Point of Care 184 (65-105)
[2019-10-04 05:46] LABS: Albumin Level 2.8 g/dL (3.5-5.1); Blood Urea Nitrogen 14 mg/dL (7-17); Calcium 8.8 mg/dL (8.4-10.2); Carbon Dioxide 33 mmol/L (22-30); Chloride 92 mmol/L (98-107); Estimated CRCL calculation 20 ml/min; Estimated Glomerular Filt Rate 24; Glucose 117 mg/dL (65-105); Phosphorus 2.9 mg/dL (2.5-4.5); Potassium 4.1 mmol/L (3.4-5.0); Sodium 130 mmol/L (137-145)
[2019-10-04 06:00] VITALS: BP 169/83; PULSE 90; RESP 16; TEMP 36.8; O2SAT 98
[2019-10-04 06:52] LABS: Glucose Point of Care 115 (65-105)
[2019-10-04] MEDS: CHOLECALCIFEROL 1,000 UNIT TABLET 2000 UNITS PO (09:15)
[2019-10-04] MEDS: ANASTROZOLE (*CHEMO) 1 MG TABLET PO (09:15)
[2019-10-04] MEDS: FUROSEMIDE 80 MG TABLET PO ×2 (09:15→18:05)
[2019-10-04] MEDS: CLOPIDOGREL BISULFATE 75 MG TABLET PO (09:15)
[2019-10-04] MEDS: SEVELAMER CARBONATE 800 MG TABLET PO (09:15)
[2019-10-04] MEDS: CYANOCOBALAMIN 1,000 MCG TABLET 1000 MCG PO (09:15)
[2019-10-04] MEDS: APIXABAN 2.5 MG TABLET PO ×2 (09:15→18:05)
[2019-10-04] MEDS: ISOSORBIDE MONONITRATE 60 MG TAB.ER.24H PO (09:16)
[2019-10-04] MEDS: PANTOPRAZOLE 40 MG TABLET PO (09:16)
[2019-10-04] MEDS: hydrALAZINE HCL 25 MG TABLET PO ×2 (09:16→20:00)
[2019-10-04] MEDS: VITAMIN B CMPLX/VIT C/FOLIC AC 1 CAPSULE 1 CAP PO (09:16)
[2019-10-04 09:17] VITALS: PULSE 90
[2019-10-04] MEDS: METOPROLOL SUCCINATE EXT REL 100 MG TABCR PO (09:17)
[2019-10-04] MEDS: PROCHLORPERAZINE MALEATE 5 MG TABLET PO (09:17)
[2019-10-04] MEDS: cloNIDine HCL 0.1 MG TABLET PO ×2 (09:19→20:03)
[2019-10-04] MEDS: polyethylene glycoL 3350 17 GM POWD.PACK PO (09:19)
[2019-10-04 10:18] VITALS: PULSE 78; O2SAT 95
[2019-10-04 12:01] LABS: Glucose Point of Care 137 (65-105)
[2019-10-04 14:00] VITALS: BP 128/52; PULSE 78; RESP 20; TEMP 36.7; O2SAT 100
--- NOTE | 2019-10-04 15:42 | PM.IMPN ---
Progress Note: A&P Assessment and Plan (1) Diabetic infection of right foot: Code(s): E11.628 - Type 2 diabetes mellitus with other skin complications; L08.9 - Local infection of the skin and subcutaneous tissue, unspecified Status: Acute Assessment and Plan: 10/04/19 15:42 Kiara Lebron is a 74 year old female with history of end-stage renal disease on hemodialysis, diabetes status post right BKA after patient was diagnosed with severe diabetic wound, the patient is here in [facility] for rehab, for diabetes patient was given glipizide 10 mg, however patient has not received her scheduled dialysis yesterday, today patient is running hypoglycemia most likely secondary to persistent glipizide and her system, patient was given glucose gel and encourage to have her breakfast and lunch, patient is clinically stable, her blood sugars are trending up, does not appear to be any distress. Patient was seen by millwright instructor and had dialysis on 10/01, and glipizide was dialyzed, again on 10/02 patient blood sugars were trending up and patient and additional dialysis, continued to monitored, today her fasting blood sugar was 115 and if we add any antidiabetes medication it may further drop her fasting blood therefore we will continue to monitor patient blood sugar, once patient blood sugars stabilized, may add low-dose glipizide 2.5 mg daily and monitor, patient is feeling much better compared to yesterday will continue to monitor (2) Hemodialysis patient: Code(s): Z99.2 - Dependence on renal dialysis Status: Acute Assessment and Plan: Patient seen by millwright instructor and will have scheduled dialysis Subjective Date/time seen: 10/04/19 15:42 Kiara Lebron is a 74 year old female with history of end-stage renal disease on hemodialysis, diabetes status post right BKA after patient was diagnosed with severe diabetic wound, the patient is here in [facility] for rehab, for diabetes patient was given glipizide 10 mg, however patient has not received her scheduled dialysis yesterday, today patient is running hypoglycemia most likely secondary to persistent glipizide and her system, patient was given glucose gel and encourage to have her breakfast and lunch, patient is clinically stable, her blood sugars are trending up, does not appear to be any distress. Patient was seen by millwright instructor and had dialysis on 7/10, and glipizide was dialyzed, again on 10/02 patient blood sugars were trending up and patient and additional dialysis, continued to monitored, today her fasting blood sugar was 115 and if we add any antidiabetes medication it may further drop her fasting blood therefore we will continue to monitor patient blood sugar, once patient blood sugars stabilized, may add low-dose glipizide 2.5 mg daily and monitor, patient is feeling much better compared to yesterday will continue to monitor Review of Systems Review of Systems: All systems reviewed & are unremarkable except as noted in HPI and below Exam Const: General: comfortable and no acute distress HENMT: General nose exam: Normal nares present Eyes: General: appearance normal, both eyes and all related structures Sclera: sclerae normal Neck: Neck: supple Resp: Effort & Inspection: normal respiratory effort Auscultation: clear to auscultation bilaterally Cardio: Rate: regular rate Rhythm: regular rhythm GI: Auscultation: normal bowel sounds Skin: General skin exam: normal color Neuro: Speech: normal speech Sensory Exam: normal sensation Extrem: General: normal to inspection Other: Rt BKA Psych: Affect: Anxious affect present Objective Data Vital Signs Vital Signs: Vital Signs - 24 hr 10/03/19 21:51 10/04/19 06:00 10/04/19 09:17 Temperature 99.3 F 98.2 F Pulse Rate 55 L 90 90 Respiratory Rate 16 16 Blood Pressure 166/60 H 169/83 H Pulse Oximetry 97 98 10/04/19 10:18 10/04/19 14:00 Temperature 98.1 F Pulse Rate 78 78 Respiratory Rate 20 Blood
[2019-10-04 16:51] LABS: Glucose Point of Care 157 (65-105)
--- NOTE | 2019-10-04 18:38 | WPDNEURORHBP ---
Subjective Date/time seen: 10/04/19 18:38 Interval history: this 74-year-old woman is here after having had the right BKA she has wound in the left heel and also the toe for which we have last the wound care nurse to see her her blood sugar is better since we have held her glipizide she denies any headache nausea vomiting chest pain shortness of breath fever chills sore throat she was able to tolerate the dialysis yesterday Review of Systems Review of Systems: All systems reviewed & are unremarkable except as noted in HPI and below Functional Status Transfers Ability Ability to Transfer In/Out of Chair: Maximum Assistance X 1 Exam Const: General: comfortable and no acute distress HENMT: General nose exam: Normal nares present Mouth: Yes moist mucous membranes Eyes: General: appearance normal, both eyes and all related structures Neck: Neck: supple and no JVD Resp: Effort & Inspection: normal respiratory effort Auscultation: clear to auscultation bilaterally Cardio: Rate: regular rate Rhythm: regular rhythm GI: GI Palp: Yes Soft to palpation Auscultation: normal bowel sounds Skin: General skin exam: normal color and no rashes or lesions noted Neuro: Other: she is awake alert will oriented has evidence of peripheral neuropathy and weakness and peripheral vascular disease and wound as have mentioned Extrem: Other: left heel has a wound and also on the toe has dystrophic changes for which I have requested the wound care nurse to look at it right BKA is stable Psych: Mental Status: mental status grossly normal Objective Data Vital Signs Vital Signs: Vital Signs - 24 hr 10/03/19 21:51 10/04/19 06:00 10/04/19 09:17 Temperature 37.4 C 36.8 C Pulse Rate 55 L 90 90 Respiratory Rate 16 16 Blood Pressure 166/60 H 169/83 H Pulse Oximetry 97 98 10/04/19 10:18 10/04/19 14:00 Temperature 36.7 C Pulse Rate 78 78 Respiratory Rate 20 Blood Pressure 128/52 L Pulse Oximetry 95 100 Intake/Output Intake/Output: Intake & Output 10/01/19 10/02/19 10/03/19 10/04/19 23:59 23:59 23:59 23:59 Intake Total 600 1080 1320 720 Output Total 2100 2400 Balance 600 -1020 -1080 720 Meds/Results Medications: Active Medications Generic Name Dose Route Start Last Admin Trade Name Freq PRN Reason Stop Dose Admin Acetaminophen 500 mg 09/30/19 14:48 10/01/19 04:41 Tylenol Tablet PO 500 mg Q6H PRN Administration Pain (Scale Score 4-6) Hydrocodone Bitart/Acetaminophen 1 tab 09/30/19 14:48 10/04/19 15:12 [place] 7.5-325 Mg PO 1 tab Q4H PRN Administration Pain (Scale Score 7-10) Albuterol 2 puff 09/30/19 16:52 Proventil Hfa INHALATION 10/14/19 16:48 QIDRT PRN Wheezing Anastrozole 1 mg 10/01/19 09:00 10/04/19 09:15 Arimidex PO 10/31/19 09:01 1 mg DAILY MAYLIN Administration Apixaban 2.5 mg 09/30/19 17:00 10/04/19 18:05 Eliquis PO 2.5 mg BID MAYLIN Administration Atorvastatin Calcium 40 mg 09/30/19 21:00 10/03/19 20:46 Lipitor PO 40 mg HS MAYLIN Administration Clonidine HCl 0.1 mg 09/30/19 21:00 10/04/19 09:19 Catapres PO 0.1 mg Q12HR MAYLIN Administration Clopidogrel Bisulfate 75 mg 10/01/19 09:00 10/04/19 09:15 Plavix PO 75 mg DAILY MAYLIN Administration Cyanocobalamin 1,000 mcg 10/01/19 09:00 10/04/19 09:15 Vitamin B-12 Tab PO 1,000 mcg QAM MAYLIN Administration Dextrose 12.5 gm 10/01/19 11:44 Dextrose 50% Syringe IV PUSH PRN PRN Hypoglycemia Protocol Furosemide 80 mg 09/30/19 17:00 10/04/19 18:05 Lasix Tablet PO 80 mg BID MAYLIN Administration Gabapentin 100 mg 09/30/19 21:00 10/03/19 20:48 Neurontin PO 100 mg HS MAYLIN Administration Glucagon 1 mg 10/01/19 11:44 Glucagon For Inj IM PRN PRN Hypoglycemia Protocol Glucose 15 gm 10/01/19 11:44 Glutose 15 PO PRN PRN Hypoglycemia Protocol Hydralazine HCl 25 mg 09/30/19 2
[2019-10-04] MEDS: ATORVASTATIN 40 MG TABLET PO (19:59)
[2019-10-04] MEDS: GABAPENTIN 100 MG CAPSULE PO (20:00)
[2019-10-04 21:56] VITALS: BP 151/55; PULSE 72; RESP 18; TEMP 35.8; O2SAT 96
[2019-10-05 05:12] LABS: Albumin Level 2.7 g/dL (3.5-5.1); Blood Urea Nitrogen 22 mg/dL (7-17); Calcium 9.1 mg/dL (8.4-10.2); Carbon Dioxide 28 mmol/L (22-30); Chloride 92 mmol/L (98-107); Estimated CRCL calculation 13 ml/min; Estimated Glomerular Filt Rate 14; Glucose 97 mg/dL (65-105); Phosphorus 3.5 mg/dL (2.5-4.5); Potassium 4.5 mmol/L (3.4-5.0); Sodium 127 mmol/L (137-145)
[2019-10-05 06:00] VITALS: BP 146/55; PULSE 68; RESP 18; TEMP 35.9; O2SAT 100
[2019-10-05 07:02] LABS: Glucose Point of Care 97 (65-105)
[2019-10-05] MEDS: CHOLECALCIFEROL 1,000 UNIT TABLET 2000 UNITS PO (08:48)
[2019-10-05] MEDS: SEVELAMER CARBONATE 800 MG TABLET PO (08:48)
[2019-10-05] MEDS: APIXABAN 2.5 MG TABLET PO ×2 (08:48→18:09)
[2019-10-05] MEDS: ANASTROZOLE (*CHEMO) 1 MG TABLET PO (08:48)
[2019-10-05 08:49] VITALS: PULSE 68
[2019-10-05] MEDS: ISOSORBIDE MONONITRATE 60 MG TAB.ER.24H PO (08:49)
[2019-10-05] MEDS: METOPROLOL SUCCINATE EXT REL 100 MG TABCR PO (08:49)
[2019-10-05] MEDS: FUROSEMIDE 80 MG TABLET PO ×2 (08:49→18:09)
[2019-10-05] MEDS: hydrALAZINE HCL 25 MG TABLET PO ×2 (08:49→20:16)
[2019-10-05] MEDS: CLOPIDOGREL BISULFATE 75 MG TABLET PO (08:49)
[2019-10-05] MEDS: CYANOCOBALAMIN 1,000 MCG TABLET 1000 MCG PO (08:49)
[2019-10-05] MEDS: VITAMIN B CMPLX/VIT C/FOLIC AC 1 CAPSULE 1 CAP PO (08:50)
[2019-10-05] MEDS: PROCHLORPERAZINE MALEATE 5 MG TABLET PO (08:55)
[2019-10-05] MEDS: cloNIDine HCL 0.1 MG TABLET PO ×2 (09:05→20:15)
[2019-10-05] MEDS: PANTOPRAZOLE 40 MG TABLET PO (09:22)
[2019-10-05 12:26] LABS: Glucose Point of Care 143 (65-105)
[2019-10-05] MEDS: GABAPENTIN 100 MG CAPSULE 200 MG PO (12:54)
[2019-10-05 14:00] VITALS: BP 137/43; PULSE 72; RESP 20; TEMP 36.5; O2SAT 98
--- NOTE | 2019-10-05 17:12 | PM.IMPN ---
Progress Note: A&P Assessment and Plan (1) Diabetic infection of right foot: Code(s): E11.628 - Type 2 diabetes mellitus with other skin complications; L08.9 - Local infection of the skin and subcutaneous tissue, unspecified Status: Acute Assessment and Plan: i10/05/19 17:12 Kiara Lebron is a 74 year old female with history of end-stage renal disease on hemodialysis, diabetes status post right BKA after patient was diagnosed with severe diabetic wound, the patient is here in [facility] for rehab, for diabetes patient was given glipizide 10 mg, however patient had not received her scheduled dialysis, patient was running hypoglycemia most likely secondary to persistent glipizide and her system, patient was given glucose gel and encourage to have her breakfast and lunch, patient is clinically stable, her blood sugars are trending up, does not appear to be any distress. Patient was seen by insurance agency sales manager and had dialysis on 10/01, and glipizide was dialyzed, again on 10/02 patient blood sugars were trending up and patient and additional dialysis, continued to monitored, on 10/04 her fasting blood sugar was 97 and if we add any antidiabetes medication it may further drop her fasting blood therefore we will continue to monitor patient blood sugar, once patient blood sugars stabilized, may add low-dose glipizide 2.5 mg daily and monitor, patient is feeling much better compared to yesterday will continue to monitor (2) Hemodialysis patient: Code(s): Z99.2 - Dependence on renal dialysis Status: Acute Assessment and Plan: Patient seen by insurance agency sales manager and will have scheduled dialysis Subjective Date/time seen: 10/05/19 17:12 Kiara Lebron is a 74 year old female with history of end-stage renal disease on hemodialysis, diabetes status post right BKA after patient was diagnosed with severe diabetic wound, the patient is here in [facility] for rehab, for diabetes patient was given glipizide 10 mg, however patient had not received her scheduled dialysis, patient was running hypoglycemia most likely secondary to persistent glipizide and her system, patient was given glucose gel and encourage to have her breakfast and lunch, patient is clinically stable, her blood sugars are trending up, does not appear to be any distress. Patient was seen by insurance agency sales manager and had dialysis on 10/01, and glipizide was dialyzed, again on 10/02 patient blood sugars were trending up and patient and additional dialysis, continued to monitored, on 10/04 her fasting blood sugar was 97 and if we add any antidiabetes medication it may further drop her fasting blood therefore we will continue to monitor patient blood sugar, once patient blood sugars stabilized, may add low-dose glipizide 2.5 mg daily and monitor, patient is feeling much better compared to yesterday will continue to monitor Review of Systems Review of Systems: All systems reviewed & are unremarkable except as noted in HPI and below Exam Const: General: comfortable and no acute distress HENMT: General nose exam: Normal nares present Eyes: General: appearance normal, both eyes and all related structures Sclera: sclerae normal Neck: Neck: supple Resp: Effort & Inspection: normal respiratory effort Auscultation: clear to auscultation bilaterally Cardio: Rate: regular rate Rhythm: regular rhythm GI: Auscultation: normal bowel sounds Skin: General skin exam: normal color Neuro: Speech: normal speech Sensory Exam: normal sensation Extrem: General: normal to inspection Other: Rt BKA Psych: Affect: Anxious affect present Objective Data Vital Signs Vital Signs: Vital Signs - 24 hr 10/04/19 21:56 10/05/19 06:00 10/05/19 08:49 Temperature 96.4 F L 96.6 F L Pulse Rate 72 68 68 Respiratory Rate 18 18 Blood Pressure 151/55 H 146/55 H Pulse Oximetry 96 100 10/05/19 14:00 Temperature 97.7 F Pulse Rate 72 Respiratory Rate 20 Blood Pressure 137/43 L Pulse Oximetry 98 In
[2019-10-05 17:29] LABS: Glucose Point of Care 123 (65-105)
[2019-10-05] MEDS: GABAPENTIN 100 MG CAPSULE PO (18:09)
[2019-10-05 20:03] VITALS: O2SAT 94
[2019-10-05] MEDS: ATORVASTATIN 40 MG TABLET PO (20:16)
[2019-10-05] MEDS: DOCUSATE SODIUM 100 MG CAPSULE PO (20:16)
[2019-10-05 20:54] LABS: Glucose Point of Care 135 (65-105)
[2019-10-05 22:00] VITALS: BP 154/50; PULSE 72; RESP 18; TEMP 36.7; O2SAT 100
[2019-10-06] VITALS (18 sets, daily range): BP systolic 110–176; BP diastolic 43–88; PULSE 64–88; RESP 18–20; TEMP 36–36.7; O2SAT 95–100
[2019-10-06 05:27] LABS: Potassium 4.9 mmol/L (3.4-5.0)
[2019-10-06 05:29] LABS: Albumin Level 2.6 g/dL (3.5-5.1); Blood Urea Nitrogen 31 mg/dL (7-17); Carbon Dioxide 29 mmol/L (22-30); Chloride 90 mmol/L (98-107); Estimated CRCL calculation 11 ml/min; Estimated Glomerular Filt Rate 11; Glucose 98 mg/dL (65-105); Phosphorus 4.5 mg/dL (2.5-4.5); Sodium 126 mmol/L (137-145)
[2019-10-06 06:52] LABS: Glucose Point of Care 103 (65-105)
[2019-10-06] MEDS: ISOSORBIDE MONONITRATE 60 MG TAB.ER.24H PO (07:31)
[2019-10-06] MEDS: METOPROLOL SUCCINATE EXT REL 100 MG TABCR PO (07:31)
[2019-10-06] MEDS: DOCUSATE SODIUM 100 MG CAPSULE PO ×2 (07:31→20:40)
[2019-10-06] MEDS: FUROSEMIDE 80 MG TABLET PO ×2 (07:31→17:58)
[2019-10-06] MEDS: CLOPIDOGREL BISULFATE 75 MG TABLET PO (07:31)
[2019-10-06] MEDS: ANASTROZOLE (*CHEMO) 1 MG TABLET PO (07:32)
[2019-10-06] MEDS: CYANOCOBALAMIN 1,000 MCG TABLET 1000 MCG PO (07:32)
[2019-10-06] MEDS: APIXABAN 2.5 MG TABLET PO ×2 (07:32→17:58)
[2019-10-06] MEDS: CHOLECALCIFEROL 1,000 UNIT TABLET 2000 UNITS PO (07:32)
[2019-10-06] MEDS: PANTOPRAZOLE 40 MG TABLET PO (07:33)
[2019-10-06] MEDS: VITAMIN B CMPLX/VIT C/FOLIC AC 1 CAPSULE 1 CAP PO (07:33)
[2019-10-06] MEDS: GABAPENTIN 100 MG CAPSULE PO ×3 (07:33→17:58)
[2019-10-06] MEDS: hydrALAZINE HCL 25 MG TABLET PO ×2 (07:33→20:41)
[2019-10-06] MEDS: cloNIDine HCL 0.1 MG TABLET PO ×2 (07:36→20:44)
[2019-10-06] MEDS: polyethylene glycoL 3350 17 GM POWD.PACK PO (07:36)
--- NOTE | 2019-10-06 09:18 | PCPTNOTE ---
Addendum entered by Delphine Pendleton PTA 10/14/19 09:47: Recommending a 20x18 wheelchair due to patient's anatomical hip width of 18 inches. Addendum entered by Delphine Pendleton PTA 10/10/19 10:49: Recommending Swing Away arm rests to facilitate independence with slide board transfers. Original Note: Delphine Pendleton PTA completed an inpatient rehab wheelchair evaluation on Kiara Lebron on 10/06/2019. The patient is unable to safely and independently ambulate household distances due to their current impairments. Their diagnosis is Right BKA and their impairments include decreased strength, decreased endurance, decreased range of motion, decreased balance and lower extremity weakness. Kiara's weight bearing status is weight-bearing as tolerated on the left lower leg and non weight bearing on right leg. The patient demonstrates significant functional mobility limitations that impair their ability to participate in mobility-related activities of daily living (MRADLs), including toileting, feeding, dressing, grooming, and bathing in the customary locations in the home. These limitations cannot be sufficiently resolved by the use of an appropriately fitted cane or walker. It is recommended that the patient utilize a wheelchair for functional mobility within the home in order to facilitate optimal safety, independence and participation in all MRADL's and adequately access their home environment on a regular basis. The patient's home provides adequate access between rooms, maneuvering space, and surfaces to accommodate the recommended wheelchair. The use of a wheelchair for functional mobility is strongly recommended and the patient is receptive to using the wheelchair. The use of this wheelchair will significantly improve the patient's ability to participate in MRADLS and the patient will use it on a regular basis in the home. This will facilitate optimal safety, independence, and participation. The patient has demonstrated sufficient physical and mental capabilities needed to safely propel a manual wheelchair that is provided in the home during a typical day. Recommended Wheelchair Frame: 20x18, seat to floor height no more than 18 inches due to patient's height of 5 feet 1 inch. Recommended Wheelchair Size: standard Recommended Wheelchair Cushion:air cushion (due to skin integrity) Wheelchair Leg Recommendations: right residual limb leg rest and elevating leg rest on left. - Elevating legrests are recommended because the patient has significant edema of the lower extremities that requires an elevating legrest. -Anti-tippers are recommended due to patient demonstrating increased risk for falls. They would benefit from anti-tippers with added safety and stabilization. Delphine [place] FLEET MAINTENANCE MANAGER 10-06-2019 Evaluating Therapist Date I agree with and certify that the above recommendation is medically necessary. Referring Physician Date I agree with and certify that the above recommendation is medically necessary. Referring Physician Date
[2019-10-06] MEDS: SEVELAMER CARBONATE 800 MG TABLET PO (09:31)
--- NOTE | 2019-10-06 11:04 | WPDNEURORHBP ---
Subjective Date/time seen: 10/06/19 11:04 Interval history: this 74-year-old woman who has end-stage renal disease receive dialysis is here for the rehab reason after having had a right BKA. The patient was seen by our wound care nurse yesterday and the recommendations were noted and reviewed She is quite stable denies any headache nausea vomiting chest pain shortness of breath fever chills sore Review of Systems Review of Systems: All systems reviewed & are unremarkable except as noted in HPI and below Functional Status Transfers Ability Ability to Transfer In/Out of Chair: Minimum Assistance X 1 Exam Const: General: comfortable and no acute distress HENMT: General nose exam: Normal nares present Mouth: Yes moist mucous membranes Eyes: General: appearance normal, both eyes and all related structures Neck: Neck: supple and no JVD Resp: Effort & Inspection: normal respiratory effort Auscultation: clear to auscultation bilaterally Cardio: Rate: regular rate Rhythm: regular rhythm GI: GI Palp: Yes Soft to palpation Auscultation: normal bowel sounds Skin: General skin exam: normal color and no rashes or lesions noted Neuro: Other: patient remains awake alert well oriented follow the command overall physical status is improving she is working with the rehab we had team conference this morning and I will summarize it in my initial plan Extrem: Other: right BKA is clean and the dry the left heel has dry eschar no open wound and no symptom and sign of infection Psych: Mental Status: mental status grossly normal Objective Data Vital Signs Vital Signs: Vital Signs - 24 hr 10/05/19 14:00 10/05/19 20:03 10/05/19 22:00 Temperature 36.5 C 36.7 C Pulse Rate 72 72 Respiratory Rate 20 18 Blood Pressure 137/43 L 154/50 H Pulse Oximetry 98 94 100 10/06/19 06:00 10/06/19 07:31 Temperature 36.5 C Pulse Rate 64 64 Respiratory Rate 19 Blood Pressure 146/46 H Pulse Oximetry 100 Intake/Output Intake/Output: Intake & Output 10/03/19 10/04/19 10/05/19 10/06/19 23:59 23:59 23:59 23:59 Intake Total 1320 1470 1680 120 Output Total 2400 600 250 Balance -0818 884 0696 120 Meds/Results Medications: Active Medications Generic Name Dose Route Start Last Admin Trade Name Freq PRN Reason Stop Dose Admin Acetaminophen 500 mg 09/30/19 14:48 10/01/19 04:41 Tylenol Tablet PO 500 mg Q6H PRN Administration Pain (Scale Score 4-6) Hydrocodone Bitart/Acetaminophen 1 tab 09/30/19 14:48 10/06/19 09:31 [place] 7.5-325 Mg PO 1 tab Q4H PRN Administration Pain (Scale Score 7-10) Albuterol 2 puff 09/30/19 16:52 Proventil Hfa INHALATION 10/14/19 16:48 QIDRT PRN Wheezing Anastrozole 1 mg 10/01/19 09:00 10/06/19 07:32 Arimidex PO 10/31/19 09:01 1 mg DAILY MAYLIN Administration Apixaban 2.5 mg 09/30/19 17:00 10/06/19 07:32 Eliquis PO 2.5 mg BID MAYLIN Administration Atorvastatin Calcium 40 mg 09/30/19 21:00 10/05/19 20:16 Lipitor PO 40 mg HS MAYLIN Administration Clonidine HCl 0.1 mg 09/30/19 21:00 10/06/19 07:36 Catapres PO 0.1 mg Q12HR MAYLIN Administration Clopidogrel Bisulfate 75 mg 10/01/19 09:00 10/06/19 07:31 Plavix PO 75 mg DAILY MAYLIN Administration Cyanocobalamin 1,000 mcg 10/01/19 09:00 10/06/19 07:32 Vitamin B-12 Tab PO 1,000 mcg QAM MAYLIN Administration Dextrose 12.5 gm 10/01/19 11:44 Dextrose 50% Syringe IV PUSH PRN PRN Hypoglycemia Protocol Docusate Sodium 100 mg 10/05/19 21:00 10/06/19 07:31 Colace Capsule PO 100 mg Q12HR MAYLIN Administration Epoetin Lauro-epbx 10,000 units 10/06/19 19:58 Retacrit IV PUSH 10/06/19 19:59 ONCE ONE Furosemide 80 mg 09/30/19 17:00 10/06/19 07:31 Lasix Tablet PO 80 mg BID MAYLIN Administration Gabapentin 100 mg 10/05/19 18:00 10/06/19 07:33 Neurontin PO 100 mg TID MAYLIN Administration Glucagon 1 mg
--- NOTE | 2019-10-06 11:39 | PM.PNNEP ---
Progress Note: A&P Assessment and Plan (1) End stage renal disease: Code(s): N18.6 - End stage renal disease Status: Acute Assessment and Plan: HD today and continue T/T/S schedule follow electrolytes, volume status, and clearance (2) Congestive heart failure: Code(s): I50.9 - Heart failure, unspecified Status: Acute Assessment and Plan: volume status appears stable fluid removal with HD to maintain euvolemia (3) Coronary artery disease: Code(s): I25.10 - Atherosclerotic heart disease of [place] coronary artery without angina pectoris Status: Acute Assessment and Plan: appears stable recent myocardial infarction with stents placed continue current medical therapy (4) 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 Subjective Date/time seen: 10/06/19 11:39 Appears to be doing reasonably well with therapy; no apparent issues or problems to report; no distress noted; due for dialysis this afternoon. Exam Narrative: Exam Narrative: General: WD/WN female in NAD Heart: normal S1 and S2; no rub Lungs: clear to auscultation Abdomen: soft, nontender, nondistended, positive bowel sounds Extremities: no cyanosis or clubbing; no edema Skin: warm and dry Objective Data Vital Signs Vital Signs: Vital Signs Temp Pulse Resp BP Pulse Ox 10/06/19 07:31 64 10/06/19 06:00 36.5 C 64 19 146/46 H 100 10/05/19 22:00 36.7 C 72 18 154/50 H 100 10/05/19 20:03 94 10/05/19 14:00 36.5 C 72 20 137/43 L 98 Intake/Output Intake/Output: Intake & Output 10/03/19 10/04/19 10/05/19 10/06/19 23:59 23:59 23:59 23:59 Intake Total 1320 1470 1680 120 Output Total 2400 600 250 Balance -5396 667 4725 120 Meds/Results Medications: Active Medications Generic Name Dose Route Start Last Admin Trade Name Freq PRN Reason Stop Dose Admin Acetaminophen 500 mg 09/30/19 14:48 10/01/19 04:41 Tylenol Tablet PO 500 mg Q6H PRN Administration Pain (Scale Score 4-6) Hydrocodone Bitart/Acetaminophen 1 tab 09/30/19 14:48 10/06/19 09:31 [place] 7.5-325 Mg PO 1 tab Q4H PRN Administration Pain (Scale Score 7-10) Albuterol 2 puff 09/30/19 16:52 Proventil Hfa INHALATION 10/14/19 16:48 QIDRT PRN Wheezing Anastrozole 1 mg 10/01/19 09:00 10/06/19 07:32 Arimidex PO 10/31/19 09:01 1 mg DAILY MAYLIN Administration Apixaban 2.5 mg 09/30/19 17:00 10/06/19 07:32 Eliquis PO 2.5 mg BID MAYLIN Administration Atorvastatin Calcium 40 mg 09/30/19 21:00 10/05/19 20:16 Lipitor PO 40 mg HS MAYLIN Administration Clonidine HCl 0.1 mg 09/30/19 21:00 10/06/19 07:36 Catapres PO 0.1 mg Q12HR MAYLIN Administration Clopidogrel Bisulfate 75 mg 10/01/19 09:00 10/06/19 07:31 Plavix PO 75 mg DAILY MAYLIN Administration Cyanocobalamin 1,000 mcg 10/01/19 09:00 10/06/19 07:32 Vitamin B-12 Tab PO 1,000 mcg QAM MAYLIN Administration Dextrose 12.5 gm 10/01/19 11:44 Dextrose 50% Syringe IV PUSH PRN PRN Hypoglycemia Protocol Docusate Sodium 100 mg 10/05/19 21:00 10/06/19 07:31 Colace Capsule PO 100 mg Q12HR MAYLIN Administration Epoetin Lauro-epbx 10,000 units 10/06/19 19:58 Retacrit IV PUSH 10/06/19 19:59 ONCE ONE Furosemide 80 mg 09/30/19 17:00 10/06/19 07:31 Lasix Tablet PO 80 mg BID MAYLIN Administration Gabapentin 100 mg 10/05/19 18:00 10/06/19
[2019-10-06 12:15] LABS: Glucose Point of Care 123 (65-105)
--- NOTE | 2019-10-06 13:17 | PCNFU ---
Nutrition Follow-Up Complete: Increased protein/calorie needs related to increased demands as evidenced by patient on dialysis with recent BKA and pressure ulcer. Nutrition Goal: Patient to consume 75% of meals/supplements Pt has meet nutritional goal. Nutrition recommendation: Agree with current diet. Recommend continuing glucerna at dinner time. Last recorded weight is 79 kg which is up from last review. Patient scheduled for dialysis later today. Encouraged low sodium foods for volume control. Bowel Motility: Last documented BM on 10/05/19 Labs Reviewed:Na (126) BUN (31) Cr (3.9) Meds Noted: Hydrochlorothiazide, Albuterol, Vitamin B12, Colace, Retacrit, Lasix, Vitamin B Complex, Protonix, Miralax, Renvela, Vitamin D Additional Notes: Patient reports good appetite. Patient is consuming 100% of meals. Left heel with pressure ulcer. Glucerna providing additional 220kcal, 10g protein per serving. Follow up in 7 days.
[2019-10-06] MEDS: SODIUM CHLORIDE 0.9% IV 1,000 ML 333 ML IV CONT (14:15)
--- NOTE | 2019-10-06 14:15 | PCNSR ---
On 10/06/19, the student, Fahad Lynn, provided care and completed [facility] documentation on this patient. I have reviewed the student's documentation and agree with the findings.
--- NOTE | 2019-10-06 14:44 | PCPTNOTE ---
Kiara Johnnie Lebron was evaluated for a slide board on 10/06/2019 by this physical therapist animal assistant. The slide board will resolve patient's mobility limitations and will be used for ADL's within the home. The patient can safely use the slide board. ?The slide board will resolve the patient?s mobility deficits, including complying with non weight bearing on right leg, impaired balance and decreased endurance.
[2019-10-06] MEDS: HEPARIN SODIUM 1,000 UNITS/ML VIAL 6000 UNITS (16:51)
--- NOTE | 2019-10-06 17:30 | PM.IMPN ---
Progress Note: A&P Assessment and Plan (1) Diabetes mellitus with hypoglycemia: Code(s): E11.649 - Type 2 diabetes mellitus with hypoglycemia without coma Status: Acute Assessment and Plan: Her glucose has been under control since glipizide was stopped. I would recommend not to resume glipizide in this patient with ESRD. We will get a Hb A1c and if below 7% I would recommend no further therapy for her diabetes other than diet, this recommendation is based on her age and comorbidities (ESRD) and the risk of hypoglycemia. (2) Diabetic infection of right foot: Code(s): E11.628 - Type 2 diabetes mellitus with other skin complications; L08.9 - Local infection of the skin and subcutaneous tissue, unspecified Status: Acute Assessment and Plan: She has a BKA. (3) End stage renal disease: Code(s): N18.6 - End stage renal disease Status: Acute Assessment and Plan: On HD. (4) Coronary artery disease: Code(s): I25.10 - Atherosclerotic heart disease of [place] coronary artery without angina pectoris Status: Acute Assessment and Plan: Stable, continue atorvastatin, plavix. (5) Peripheral vascular disease: Code(s): I73.9 - Peripheral vascular disease, unspecified Status: Acute Assessment and Plan: Atorvastatin, plavix. Subjective Date/time seen: No new complains, seen while in HD, no more episodes of hypoglycemia. 10/06/19 17:30 Review of Systems Review of Systems: All systems reviewed & are unremarkable except as noted in HPI and below Exam Const: General: no acute distress Neck: Neck: supple and no JVD Resp: Effort & Inspection: normal respiratory effort Auscultation: clear to auscultation bilaterally Cardio: Rate: regular rate Rhythm: regular rhythm Other: No bradycardia or tachycardia. GI: Auscultation: normal bowel sounds Neuro: Speech: normal speech Motor exam (neuro): 5/5 motor strength present throughout and Normal motor muscle tone present throughout Extrem: Other: Right BKA Objective Data Vital Signs Vital Signs: Vital Signs - 24 hr 10/05/19 20:03 10/05/19 22:00 10/06/19 06:00 Temperature 98.1 F 97.7 F Pulse Rate 72 64 Respiratory Rate 18 19 Blood Pressure 154/50 H 146/46 H Pulse Oximetry 94 100 100 10/06/19 07:31 10/06/19 14:00 10/06/19 14:15 Temperature 97.2 F L Pulse Rate 64 80 73 Respiratory Rate 20 Blood Pressure 135/57 L 152/58 H Pulse Oximetry 98 10/06/19 14:30 10/06/19 14:45 10/06/19 15:00 Temperature Pulse Rate 71 74 73 Respiratory Rate Blood Pressure 110/43 L 144/61 H 168/68 H Pulse Oximetry 10/06/19 15:15 10/06/19 15:30 10/06/19 15:45 Temperature Pulse Rate 72 75 73 Respiratory Rate Blood Pressure 167/59 H 156/64 H 169/56 H Pulse Oximetry 10/06/19 16:00 10/06/19 16:15 10/06/19 16:30 Temperature Pulse Rate 78 79 83 Respiratory Rate Blood Pressure 164/88 H 176/70 H 170/71 H Pulse Oximetry 10/06/19 16:45 10/06/19 17:00 Temperature Pulse Rate 80 82 Respiratory Rate Blood Pressure 157/55 H 147/69 H Pulse Oximetry Intake/Output Intake/Output: Intake & Output 10/03/19 10/04/19 10/05/19 10/06/19 23:59 23:59 23:59 23:59 Intake Total 1320 1470 1680 320 Output Total 2400 600 250 Balance -0959 809 9504 320 Meds/Results Medications: Active Medications Generic Name Dose Route Start Last Admin Trade Name Freq PRN Reason Stop Dose Admin Acetaminophen 500 mg 09/30/19 14:48 10/01/19 04:41 Tylenol Tablet PO 500 mg Q6H PRN Administration Pain (Scale Score 4-6) Hydrocodone Bitart/Acetaminophen 1 tab 09/30/19 14:48 10/06/19 14:13 [place] 7.5-325 Mg PO 1 tab Q4H PRN Administration Pain (Scale Score 7-10) Albuterol 2 puff 09/30/19 16:52 Proventil Hfa INHALATION 10/14/19 16:48 QIDRT PRN Wheezing Anastrozole 1 mg 10/01/19 09:00 10/06/19 07:32 [place]
[2019-10-06 17:46] LABS: Glucose Point of Care 125 (65-105)
[2019-10-06] MEDS: MENTHOL 10% / METHYL SALICYLATE 15% 57 GM TUBE 1 APPLIC TOPICAL (17:56)
[2019-10-06 18:12] LABS: Hemoglobin A1C 5.3 % (<5.7)
--- NOTE | 2019-10-06 18:16 | PCDIET ---
Dialysis nurse called with report on Kiara and stated her BP was 195/75 and would re-check when we came up to get her. Not much difference, but we took upon arrival back to floor and was 170/60 manually. C/O headache and gave norco. Will continue to monitor.
[2019-10-06] MEDS: ATORVASTATIN 40 MG TABLET PO (20:40)
[2019-10-06 21:35] LABS: Glucose Point of Care 165 (65-105)
[2019-10-07 05:32] LABS: Albumin Level 2.7 g/dL (3.5-5.1); Blood Urea Nitrogen 15 mg/dL (7-17); Calcium 8.8 mg/dL (8.4-10.2); Carbon Dioxide 28 mmol/L (22-30); Chloride 94 mmol/L (98-107); Estimated CRCL calculation 16 ml/min; Estimated Glomerular Filt Rate 18; Glucose 103 mg/dL (65-105); Phosphorus 3.7 mg/dL (2.5-4.5); Potassium 4.1 mmol/L (3.4-5.0); Sodium 129 mmol/L (137-145)
[2019-10-07 06:00] VITALS: BP 150/62; PULSE 77; RESP 18; TEMP 36.5; O2SAT 100
[2019-10-07 06:51] LABS: Glucose Point of Care 115 (65-105)
[2019-10-07 08:20] VITALS: PULSE 78; RESP 18; O2SAT 98
[2019-10-07] MEDS: VITAMIN B CMPLX/VIT C/FOLIC AC 1 CAPSULE 1 CAP PO (08:30)
[2019-10-07] MEDS: ISOSORBIDE MONONITRATE 60 MG TAB.ER.24H PO (08:30)
[2019-10-07] MEDS: hydrALAZINE HCL 25 MG TABLET PO ×2 (08:31→19:58)
[2019-10-07] MEDS: CYANOCOBALAMIN 1,000 MCG TABLET 1000 MCG PO (08:31)
[2019-10-07] MEDS: APIXABAN 2.5 MG TABLET PO ×2 (08:31→17:40)
[2019-10-07] MEDS: SEVELAMER CARBONATE 800 MG TABLET PO (08:31)
[2019-10-07] MEDS: ANASTROZOLE (*CHEMO) 1 MG TABLET PO (08:31)
[2019-10-07] MEDS: DOCUSATE SODIUM 100 MG CAPSULE PO ×2 (08:31→19:58)
[2019-10-07 08:32] VITALS: PULSE 78
[2019-10-07] MEDS: FUROSEMIDE 80 MG TABLET PO ×2 (08:32→17:38)
[2019-10-07] MEDS: PROCHLORPERAZINE MALEATE 5 MG TABLET PO (08:32)
[2019-10-07] MEDS: METOPROLOL SUCCINATE EXT REL 100 MG TABCR PO (08:32)
[2019-10-07] MEDS: CLOPIDOGREL BISULFATE 75 MG TABLET PO (08:32)
[2019-10-07] MEDS: CHOLECALCIFEROL 1,000 UNIT TABLET 2000 UNITS PO (08:35)
[2019-10-07] MEDS: GABAPENTIN 100 MG CAPSULE PO ×3 (08:38→17:38)
[2019-10-07] MEDS: cloNIDine HCL 0.1 MG TABLET PO ×2 (08:38→20:01)
[2019-10-07] MEDS: polyethylene glycoL 3350 17 GM POWD.PACK PO (08:42)
[2019-10-07 12:32] LABS: Glucose Point of Care 121 (65-105)
[2019-10-07 14:00] VITALS: BP 152/59; PULSE 77; RESP 18; TEMP 36.8; O2SAT 98
--- NOTE | 2019-10-07 14:12 | WPDNEURORHBP ---
Subjective Date/time seen: 10/07/19 14:12 Interval history: this 74-year-old woman is here after having had a right BKA she is complaining of some discomfort at the left leg and a little not around the calf and she is tender I have order the Doppler study however she is already on anticoagulant so based on the Doppler will proceed further she is telling me that she had a Doppler done before and the DVT she had had resolved In any event patient denies any headache nausea vomiting chest pain shortness of breath the sonia in the left arm on they were put for the fistula for the dialysis our 3 weeks ago and they are ready to come out and will be taken out by our attending nurse Albertina Review of Systems Review of Systems: All systems reviewed & are unremarkable except as noted in HPI and below Functional Status Transfers Ability Ability to Transfer In/Out of Chair: Minimum Assistance X 1 Exam Const: General: no acute distress and in distress HENMT: General nose exam: Normal nares present Mouth: Yes moist mucous membranes Eyes: General: appearance normal, both eyes and all related structures Neck: Neck: supple and no JVD Resp: Effort & Inspection: normal respiratory effort Auscultation: clear to auscultation bilaterally Cardio: Rate: regular rate Rhythm: regular rhythm GI: GI Palp: Yes Soft to palpation Auscultation: normal bowel sounds Skin: General skin exam: normal color and no rashes or lesions noted Neuro: Other: patient is awake alert well oriented has normal speech and language function she does have evidence of the peripheral vascular disease in the peripheral neuropathy however working with the rehab quite well Extrem: Other: tenderness at the left calf a little not at the medial aspect of the calf which is tender the amputee site it little bit black it has the sutures in it and I have os the nurse Albertina to transmit the pictures to the attending surgeon at the referring hospital Psych: Mental Status: mental status grossly normal Objective Data Vital Signs Vital Signs: Vital Signs - 24 hr 10/06/19 14:15 10/06/19 14:30 10/06/19 14:45 Temperature Pulse Rate 73 71 74 Respiratory Rate Blood Pressure 152/58 H 110/43 L 144/61 H Pulse Oximetry 10/06/19 15:00 10/06/19 15:15 10/06/19 15:30 Temperature Pulse Rate 73 72 75 Respiratory Rate Blood Pressure 168/68 H 167/59 H 156/64 H Pulse Oximetry 10/06/19 15:45 10/06/19 16:00 10/06/19 16:15 Temperature Pulse Rate 73 78 79 Respiratory Rate Blood Pressure 169/56 H 164/88 H 176/70 H Pulse Oximetry 10/06/19 16:30 10/06/19 16:45 10/06/19 17:00 Temperature Pulse Rate 83 80 82 Respiratory Rate Blood Pressure 170/71 H 157/55 H 147/69 H Pulse Oximetry 10/06/19 17:20 10/06/19 22:00 10/07/19 06:00 Temperature 36.4 C L 36.7 C 36.5 C Pulse Rate 88 80 77 Respiratory Rate 18 18 18 Blood Pressure 172/71 H 152/48 H 150/62 H Pulse Oximetry 95 100 10/07/19 08:32 Temperature Pulse Rate 78 Respiratory Rate Blood Pressure Pulse Oximetry Intake/Output Intake/Output: Intake & Output 10/04/19 10/05/19 10/06/19 10/07/19 23:59 23:59 23:59 23:59 Intake Total 1470 1680 520 880 Output Total 826 753 1577 200 Balance 870 1430 -1480 680 Meds/Results Medications: Active Medications Generic Name Dose Route Start Last Admin Trade Name Freq PRN Reason Stop Dose Admin Acetaminophen 500 mg 09/30/19 14:48 10/01/19 04:41 Tylenol Tablet PO 500 mg Q6H PRN Administration Pain (Scale Score 4-6) Hydrocodone Bitart/Acetaminophen 1 tab 09/30/19 14:48 10/07/19 08:41 [place] 7.5-325 Mg PO 1 tab Q4H PRN Administration Pain (Scale Score 7-10) Albuterol 2 puff 09/30/19 16:52 Proventil Hfa INHALATION 10/14/19 16:48 QIDRT PRN Wheezing Anastrozole 1 mg 10/01/19 09:00 10/07/19 08:31 Arimidex PO 10/31/19 09:01 1 mg DAILY MAYLIN Administration Apixaban 2.5 mg 07
[2019-10-07] MEDS: PANTOPRAZOLE 40 MG TABLET PO (14:39)
--- NOTE | 2019-10-07 17:27 | PM.IMPN ---
Progress Note: A&P Assessment and Plan (1) Diabetes mellitus with hypoglycemia: Code(s): E11.649 - Type 2 diabetes mellitus with hypoglycemia without coma Status: Acute Assessment and Plan: Her glucose has been under control since glipizide was stopped. I would recommend not to resume glipizide in this patient with ESRD. We will get a Hb A1c is 5.3% I would recommend no further therapy for her diabetes other than diet, this recommendation is based on her age and comorbidities (ESRD) , the risk of hypoglycemia and higher mortality. Repeat A1c in three months and reassess the need for further therapy. (2) Diabetic infection of right foot: Code(s): E11.628 - Type 2 diabetes mellitus with other skin complications; L08.9 - Local infection of the skin and subcutaneous tissue, unspecified Status: Acute Assessment and Plan: She has a BKA. (3) End stage renal disease: Code(s): N18.6 - End stage renal disease Status: Acute Assessment and Plan: On HD. (4) Coronary artery disease: Code(s): I25.10 - Atherosclerotic heart disease of [place] coronary artery without angina pectoris Status: Acute Assessment and Plan: Stable, continue atorvastatin, plavix. (5) Peripheral vascular disease: Code(s): I73.9 - Peripheral vascular disease, unspecified Status: Acute Assessment and Plan: Atorvastatin, plavix. Subjective Date/time seen: No new complains this morning. 10/07/19 17:27 Review of Systems Review of Systems: All systems reviewed & are unremarkable except as noted in HPI and below Exam Const: General: no acute distress Neck: Neck: supple and no JVD Resp: Effort & Inspection: normal respiratory effort Auscultation: clear to auscultation bilaterally Cardio: Rate: regular rate Rhythm: regular rhythm Other: No bradycardia or tachycardia. GI: Auscultation: normal bowel sounds Neuro: Speech: normal speech Motor exam (neuro): 5/5 motor strength present throughout and Normal motor muscle tone present throughout Extrem: Other: Right BKA Objective Data Vital Signs Vital Signs: Vital Signs - 24 hr 10/06/19 22:00 10/07/19 06:00 10/07/19 08:20 Temperature 98.0 F 97.7 F Pulse Rate 80 77 78 Respiratory Rate 18 18 18 Blood Pressure 152/48 H 150/62 H Pulse Oximetry 95 100 98 07/15/20 08:32 10/07/19 14:00 Temperature 98.2 F Pulse Rate 78 77 Respiratory Rate 18 Blood Pressure 152/59 H Pulse Oximetry 98 Intake/Output Intake/Output: Intake & Output 10/04/19 10/05/19 10/06/19 10/07/19 23:59 23:59 23:59 23:59 Intake Total 1470 1680 520 880 Output Total 497 679 1406 200 Balance 870 1430 -1480 680 Meds/Results Medications: Active Medications Generic Name Dose Route Start Last Admin Trade Name Freq PRN Reason Stop Dose Admin Acetaminophen 500 mg 09/30/19 14:48 10/01/19 04:41 Tylenol Tablet PO 500 mg Q6H PRN Administration Pain (Scale Score 4-6) Hydrocodone Bitart/Acetaminophen 1 tab 09/30/19 14:48 10/07/19 14:29 [place] 7.5-325 Mg PO 1 tab Q4H PRN Administration Pain (Scale Score 7-10) Albuterol 2 puff 09/30/19 16:52 Proventil Hfa INHALATION 10/14/19 16:48 QIDRT PRN Wheezing Anastrozole 1 mg 10/01/19 09:00 10/07/19 08:31 Arimidex PO 10/31/19 09:01 1 mg DAILY MAYLIN Administration Apixaban 2.5 mg 09/30/19 17:00 10/07/19 08:31 Eliquis PO 2.5 mg BID MAYLIN Administration Atorvastatin Calcium 40 mg 09/30/19 21:00 10/06/19 20:40 Lipitor PO 40 mg HS MAYLIN Administration Clonidine HCl 0.1 mg 09/30/19 21:00 10/07/19 08:38 Catapres PO 0.1 mg Q12HR MAYLIN Administration Clopidogrel Bisulfate 75 mg 10/01/19 09:00 10/07/19 08:32 Plavix PO 75 mg DAILY MAYLIN Administration Cyanocobalamin 1,000 mcg 10/01/19 09:00 10/07/19 08:31 Vitamin B-12 Tab PO 1,000 mcg QAM MAYLIN Administration Dextrose 12.5 gm 0
[2019-10-07 19:56] LABS: Glucose Point of Care 134 (65-105)
[2019-10-07] MEDS: ATORVASTATIN 40 MG TABLET PO (19:59)
[2019-10-07 21:44] LABS: Glucose Point of Care 172 (65-105)
[2019-10-07 22:00] VITALS: BP 120/50; PULSE 72; RESP 20; TEMP 37; O2SAT 99
[2019-10-08] VITALS (22 sets, daily range): BP systolic 129–170; BP diastolic 39–73; PULSE 64–88; RESP 16–20; TEMP 36.2–37.1; O2SAT 95–98
[2019-10-08 05:34] LABS: Basophils Percent Auto 0.3 % (0.2-1.2); Eosinophils Absolute Auto 0.3 K/mm3 (0-0.3); Eosinophils Percent Auto 4.8 % (0-4.4); Hematocrit 26.1 % (37.0-47.0); Hemoglobin 8.2 g/dL (12.0-15.0); Immature Granulocyte Absolute 0.05 K/mm3 (0.00-0.031); Immature Granulocyte Percent A 0.8 % (0-0.5); Lymphocytes Absolute Auto 0.76 K/mm3 (0.9-3.2); Lymphocytes Percent Auto 12.6 % (18.3-44.2); Mean Corpuscular HGB Conc 31.4 g/dl (32-36); Mean Corpuscular Hemoglobin 32.3 pg (26-34); Mean Corpuscular Volume 102.8 fl (80-100); Mean Platelet Volume 8.6 fl (7.4-10.4); Monocytes Absolute Auto 0.6 K/mm3 (0.1-0.6); Monocytes Percent Auto 9.1 % (2.6-8.5); Neutrophils Absolute Auto 4.4 K/mm3 (1.3-6.7); Neutrophils Percent Auto 72.4 % (45.5-73.1); Platelet Count Result 390 k/mm3 (150-375); Red Blood Count 2.54 M/mm3 (4.2-5.4); Red Cell Distribution Width 16.8 % (11.5-14.5)
[2019-10-08 05:45] LABS: Albumin Level 2.6 g/dL (3.5-5.1); Blood Urea Nitrogen 25 mg/dL (7-17); Calcium 9.1 mg/dL (8.4-10.2); Carbon Dioxide 27 mmol/L (22-30); Chloride 94 mmol/L (98-107); Estimated CRCL calculation 12 ml/min; Estimated Glomerular Filt Rate 13; Glucose 98 mg/dL (65-105); Phosphorus 4.2 mg/dL (2.5-4.5); Sodium 128 mmol/L (137-145)
[2019-10-08 07:03] LABS: Glucose Point of Care 99 (65-105)
[2019-10-08] MEDS: polyethylene glycoL 3350 17 GM POWD.PACK PO (09:37)
[2019-10-08] MEDS: METOPROLOL SUCCINATE EXT REL 100 MG TABCR PO (09:38)
[2019-10-08] MEDS: CYANOCOBALAMIN 1,000 MCG TABLET 1000 MCG PO (09:39)
[2019-10-08] MEDS: VITAMIN B CMPLX/VIT C/FOLIC AC 1 CAPSULE 1 CAP PO (09:39)
[2019-10-08] MEDS: ANASTROZOLE (*CHEMO) 1 MG TABLET PO (09:39)
[2019-10-08] MEDS: PANTOPRAZOLE 40 MG TABLET PO (09:39)
[2019-10-08] MEDS: APIXABAN 2.5 MG TABLET PO ×2 (09:40→18:32)
[2019-10-08] MEDS: SEVELAMER CARBONATE 800 MG TABLET PO (09:40)
[2019-10-08] MEDS: CHOLECALCIFEROL 1,000 UNIT TABLET 2000 UNITS PO (09:42)
[2019-10-08] MEDS: CLOPIDOGREL BISULFATE 75 MG TABLET PO (09:43)
[2019-10-08] MEDS: cloNIDine HCL 0.1 MG TABLET PO ×2 (09:46→19:57)
[2019-10-08 12:10] LABS: Glucose Point of Care 150 (65-105)
[2019-10-08] MEDS: DOCUSATE SODIUM 100 MG CAPSULE PO ×2 (14:12→19:58)
[2019-10-08] MEDS: FUROSEMIDE 80 MG TABLET PO ×2 (14:12→18:32)
[2019-10-08] MEDS: GABAPENTIN 100 MG CAPSULE PO ×2 (14:12→18:32)
[2019-10-08] MEDS: hydrALAZINE HCL 25 MG TABLET PO ×2 (14:13→19:57)
[2019-10-08] MEDS: ISOSORBIDE MONONITRATE 60 MG TAB.ER.24H PO (14:13)
--- NOTE | 2019-10-08 14:17 | PM.IMPN ---
Progress Note: A&P Assessment and Plan (1) Diabetes mellitus with hypoglycemia: Code(s): E11.649 - Type 2 diabetes mellitus with hypoglycemia without coma Status: Acute Assessment and Plan: Sugars are better off DM Medications I would recommend not to resume glipizide in this patient with ESRD. We will get a Hb A1c is 5.3% I would recommend no further therapy for her diabetes other than diet. (2) Diabetic infection of right foot: Code(s): E11.628 - Type 2 diabetes mellitus with other skin complications; L08.9 - Local infection of the skin and subcutaneous tissue, unspecified Status: Acute Assessment and Plan: She has a BKA. (3) End stage renal disease: Code(s): N18.6 - End stage renal disease Status: Acute Assessment and Plan: On HD. (4) Coronary artery disease: Code(s): I25.10 - Atherosclerotic heart disease of [place] coronary artery without angina pectoris Status: Acute Assessment and Plan: Stable, continue atorvastatin, plavix. (5) Peripheral vascular disease: Code(s): I73.9 - Peripheral vascular disease, unspecified Status: Acute Assessment and Plan: Atorvastatin, plavix. Subjective Date/time seen: 10/08/19 14:17 Interval history: 74 year old female with history of end-stage renal disease on hemodialysis, diabetes status post right BKA after patient was diagnosed with severe diabetic wound, the patient is here in [facility] for rehab, we are consulted for DM management. Pt sugars are better, Pt concerned about whether her can manage, she is Right leg BKA and left leg off heel walking Review of Systems Review of Systems: All systems reviewed & are unremarkable except as noted in HPI and below Exam Const: General: comfortable and no acute distress Resp: Effort & Inspection: normal respiratory effort Auscultation: clear to auscultation bilaterally Cardio: Rate: regular rate Rhythm: regular rhythm Other: No bradycardia or tachycardia. GI: Auscultation: normal bowel sounds Skin: General skin exam: normal color Neuro: Speech: normal speech Motor exam (neuro): 5/5 motor strength present throughout and Normal motor muscle tone present throughout Sensory Exam: normal sensation Extrem: General: normal to inspection Other: Right BKA Psych: Affect: Anxious affect present Objective Data Vital Signs Vital Signs: Vital Signs - 24 hr 10/07/19 22:00 10/08/19 06:00 10/08/19 09:38 Temperature 37.0 C 37.1 C Pulse Rate 72 65 66 Respiratory Rate 20 16 Blood Pressure 120/50 L 137/39 L Pulse Oximetry 99 96 Intake/Output Intake/Output: Intake & Output 10/05/19 10/06/19 10/07/19 10/08/19 23:59 23:59 23:59 23:59 Intake Total 1951 448 7786 480 Output Total 250 2000 200 Balance 1430 -1480 920 480 Meds/Results Medications: Active Medications Generic Name Dose Route Start Last Admin Trade Name Freq PRN Reason Stop Dose Admin Acetaminophen 500 mg 09/30/19 14:48 10/01/19 04:41 Tylenol Tablet PO 500 mg Q6H PRN Administration Pain (Scale Score 4-6) Hydrocodone Bitart/Acetaminophen 1 tab 09/30/19 14:48 10/08/19 09:36 [place] 7.5-325 Mg PO 1 tab Q4H PRN Administration Pain (Scale Score 7-10) Albuterol 2 puff 09/30/19 16:52 Proventil Hfa INHALATION 10/14/19 16:48 QIDRT PRN Wheezing Anastrozole 1 mg 10/01/19 09:00 10/08/19 09:39 Arimidex PO 10/31/19 09:01 1 mg DAILY MAYLIN Administration Apixaban 2.5 mg 09/30/19 17:00 10/08/19 09:40 Eliquis PO 2.5 mg BID MAYLIN Administration Atorvastatin Calcium 40 mg 09/30/19 21:00 10/07/19 19:59 Lipitor PO 40 mg HS MAYLIN Administration Clonidine HCl 0.1 mg 09/30/19 21:00 10/08/19 09:46 Catapres PO 0.1 mg Q12HR MAYLIN Administration Clopidogrel Bisulfate 75 mg 10/01/19 09:00 10/08/19 09:43 Plavix PO 75 mg DAILY MALYIN Administration Cyanocobalamin 1,000 mcg
--- NOTE | 2019-10-08 14:26 | WPDNEURORHBP ---
Subjective Date/time seen: 10/08/19 14:26 Interval history: this 74-year-old the dialysis patient is here because of a right BKA she is complaining of the ribcage pain and I decided to do some x-rays and the x-ray showed no evidence of the fracture or any cardiopulmonary disease The patient is doing fairly well engage in therapy and working for the family training denies any headache nausea vomiting chest pain shortness of breath fever chills sore throat Review of Systems Review of Systems: All systems reviewed & are unremarkable except as noted in HPI and below Functional Status Transfers Ability Ability to Transfer In/Out of Chair: Minimum Assistance X 1 Exam Const: General: comfortable and no acute distress HENMT: General nose exam: Normal nares present Mouth: Yes moist mucous membranes Eyes: General: appearance normal, both eyes and all related structures Neck: Neck: supple and no JVD Resp: Effort & Inspection: normal respiratory effort Auscultation: clear to auscultation bilaterally Cardio: Rate: regular rate Rhythm: regular rhythm GI: GI Palp: Yes Soft to palpation Auscultation: normal bowel sounds Skin: General skin exam: normal color and no rashes or lesions noted Neuro: Other: the patient is awake and alert well oriented has right BKA and evidence of peripheral neuropathy and also peripheral vascular disease working with rehab making progress Extrem: Other: right BKA is fine Psych: Mental Status: mental status grossly normal Objective Data Vital Signs Vital Signs: Vital Signs - 24 hr 10/08/19 15:00 10/08/19 15:08 10/08/19 15:15 Temperature 36.2 C L Pulse Rate 75 75 75 Respiratory Rate 16 Blood Pressure 147/73 H 147/73 H 147/73 H Pulse Oximetry 10/08/19 15:30 10/08/19 15:45 10/08/19 16:00 Temperature Pulse Rate 66 64 68 Respiratory Rate Blood Pressure 138/56 L 170/56 H 156/63 H Pulse Oximetry 10/08/19 16:15 10/08/19 16:30 10/08/19 16:45 Temperature Pulse Rate 69 72 74 Respiratory Rate Blood Pressure 151/59 H 164/67 H 155/47 H Pulse Oximetry 10/08/19 17:00 10/08/19 17:15 10/08/19 17:30 Temperature Pulse Rate 72 75 82 Respiratory Rate Blood Pressure 153/58 H 170/45 H 144/61 H Pulse Oximetry 10/08/19 17:45 10/08/19 18:00 10/08/19 18:08 Temperature Pulse Rate 73 73 75 Respiratory Rate Blood Pressure 149/59 H 129/50 L 145/57 H Pulse Oximetry 10/08/19 18:15 10/08/19 22:00 10/09/19 06:00 Temperature 36.9 C 37.1 C 36.4 C Pulse Rate 77 88 72 Respiratory Rate 16 19 18 Blood Pressure 151/61 H 149/47 H 141/43 H Pulse Oximetry 95 100 10/09/19 08:44 Temperature Pulse Rate 72 Respiratory Rate Blood Pressure Pulse Oximetry Intake/Output Intake/Output: Intake & Output 10/06/19 10/07/19 10/08/19 10/09/19 23:59 23:59 23:59 23:59 Intake Total 520 1120 480 240 Output Total 1999 200 2000 Balance -1480 920 -1520 240 Meds/Results Medications: Active Medications Generic Name Dose Route Start Last Admin Trade Name Freq PRN Reason Stop Dose Admin Acetaminophen 500 mg 09/30/19 14:48 10/01/19 04:41 Tylenol Tablet PO 500 mg Q6H PRN Administration Pain (Scale Score 4-6) Hydrocodone Bitart/Acetaminophen 1 tab 09/30/19 14:48 10/09/19 09:24 [place] 7.5-325 Mg PO 1 tab Q4H PRN Administration Pain (Scale Score 7-10) Albuterol 2 puff 09/30/19 16:52 Proventil Hfa INHALATION 10/14/19 16:48 QIDRT PRN Wheezing Anastrozole 1 mg 10/01/19 09:00 10/09/19 08:42 Arimidex PO 10/31/19 09:01 1 mg DAILY MAYLIN Administration Apixaban 2.5 mg 09/30/19 17:00 10/09/19 08:42 Eliquis PO 2.5 mg BID MAYLIN Administration Atorvastatin Calcium 40 mg 09/30/19 21:00 10/08/19 19:57 Lipitor PO 40 mg HS MAYLIN Administration Clonidine HCl 0.1 mg 09/30/19 21:00 10/08/19 19:57 Catapres PO 0.1 mg Q12HR MAYLIN Administration Clopidogrel Bisulfate 75 mg
--- NOTE | 2019-10-08 15:00 | PC.NURSE ---
Patient taken to dialysis
--- NOTE | 2019-10-08 15:10 | PCPTNOTE ---
The patient treatment was not able to be completed on 10-08-2019 due to off floor for x ray at 10:30 and dialysis at 15:00. Patient missed 30 minutes of PT treatment this date. Will plan to continue treatment per plan of care.
--- NOTE | 2019-10-08 16:23 | PM.PNNEP ---
Progress Note: A&P Assessment and Plan (1) End stage renal disease: Code(s): N18.6 - End stage renal disease Status: Acute Assessment and Plan: HD today and continue T/T/S schedule follow electrolytes, volume status, and clearance (2) Congestive heart failure: Code(s): I50.9 - Heart failure, unspecified Status: Acute Assessment and Plan: volume status appears stable fluid removal with HD to maintain euvolemia (3) Coronary artery disease: Code(s): I25.10 - Atherosclerotic heart disease of [place] coronary artery without angina pectoris Status: Acute Assessment and Plan: appears stable recent myocardial infarction with stents placed continue current medical therapy (4) 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 Subjective Date/time seen: 10/08/19 16:23 Tolerating dialysis treatment at the time of my visit (seen on HD at 4:00PM); sleeping comfortably and in on apparent distress; working with PT/OT as tolerated; no acute issues or events to report. Exam Narrative: Exam Narrative: General: WD/WN female in NAD Heart: normal S1 and S2; no rub Lungs: clear to auscultation Abdomen: soft, nontender, nondistended, positive bowel sounds Extremities: no cyanosis or clubbing; no edema Skin: warm and intact Objective Data Vital Signs Vital Signs: Vital Signs Temp Pulse Resp BP Pulse Ox 10/08/19 16:15 69 151/59 H 10/08/19 16:00 68 156/63 H 10/08/19 15:45 64 170/56 H 10/08/19 15:30 66 138/56 L 10/08/19 15:15 75 147/73 H 10/08/19 15:08 75 147/73 H 10/08/19 15:00 36.2 C L 75 16 147/73 H 10/08/19 14:00 36.2 C L 74 20 149/55 H 98 07/16/20 09:38 66 10/08/19 09:35 76 18 98 10/08/19 06:00 37.1 C 65 16 137/39 L 96 10/07/19 22:00 37.0 C 72 20 120/50 L 99 Intake/Output Intake/Output: Intake & Output 10/05/19 10/06/19 10/07/19 10/08/19 23:59 23:59 23:59 23:59 Intake Total 8837 712 0650 480 Output Total 250 2000 200 Balance 1430 -1480 920 480 Meds/Results Medications: Active Medications Generic Name Dose Route Start Last Admin Trade Name Freq PRN Reason Stop Dose Admin Acetaminophen 500 mg 09/30/19 14:48 10/01/19 04:41 Tylenol Tablet PO 500 mg Q6H PRN Administration Pain (Scale Score 4-6) Hydrocodone Bitart/Acetaminophen 1 tab 09/30/19 14:48 10/08/19 14:20 [place] 7.5-325 Mg PO 1 tab Q4H PRN Administration Pain (Scale Score 7-10) Albuterol 2 puff 09/30/19 16:52 Proventil Hfa INHALATION 10/14/19 16:48 QIDRT PRN Wheezing Anastrozole 1 mg 10/01/19 09:00 10/08/19 09:39 Arimidex PO 10/31/19 09:01 1 mg DAILY MAYLIN Administration Apixaban 2.5 mg 09/30/19 17:00 10/08/19 09:40 Eliquis PO 2.5 mg BID MAYLIN Administration Atorvastatin Calcium 40 mg 09/30/19 21:00 10/07/19 19:59 Lipitor PO 40 mg HS MAYLIN Administration Clonidine HCl 0.1 mg 09/30/19 21:00 10/08/19 09:46 Catapres PO 0.1 mg Q12HR MAYLIN Administration Clopidogrel Bisulfate 75 mg 10/01/19 09:00 10/08/19 09:43 Plavix PO 75 mg DAILY MAYLIN Administration Cyanocobalamin 1,000 mcg 10/01/19 09:00 10/08/19 09:39 Vitamin B-12 Tab PO 1,000 mcg QAM MAYLIN Administration Dextrose 12.5 gm 10/01/19 11:44 Dextrose 50% Syringe IV PUSH PRN PRN Hypoglycemia Protocol Docusate Sodium 100 mg 07/13/20 21:00 10/08/19 14:12
[2019-10-08] MEDS: EPOETIN ALFA-EPBX 10,000 UNITS/ML VIAL 10000 UNITS IV PUSH (17:38)
[2019-10-08] MEDS: HEPARIN SODIUM 1,000 UNITS/ML VIAL 1000 UNITS IV PUSH (18:23)
[2019-10-08] MEDS: ATORVASTATIN 40 MG TABLET PO (19:57)
[2019-10-08 21:19] LABS: Glucose Point of Care 170 (65-105)
[2019-10-09 05:31] LABS: Albumin Level 2.6 g/dL (3.5-5.1); Blood Urea Nitrogen 14 mg/dL (7-17); Calcium 8.5 mg/dL (8.4-10.2); Carbon Dioxide 28 mmol/L (22-30); Chloride 99 mmol/L (98-107); Estimated CRCL calculation 18 ml/min; Estimated Glomerular Filt Rate 21; Glucose 98 mg/dL (65-105); Phosphorus 3.2 mg/dL (2.5-4.5); Potassium 4.3 mmol/L (3.4-5.0); Sodium 132 mmol/L (137-145)
[2019-10-09 06:00] VITALS: BP 141/43; PULSE 72; RESP 18; TEMP 36.4; O2SAT 100
[2019-10-09 07:10] LABS: Glucose Point of Care 100 (65-105)
[2019-10-09] MEDS: SEVELAMER CARBONATE 800 MG TABLET PO (08:42)
[2019-10-09] MEDS: ANASTROZOLE (*CHEMO) 1 MG TABLET PO (08:42)
[2019-10-09] MEDS: APIXABAN 2.5 MG TABLET PO ×2 (08:42→17:44)
[2019-10-09] MEDS: CHOLECALCIFEROL 1,000 UNIT TABLET 2000 UNITS PO (08:43)
[2019-10-09 08:44] VITALS: PULSE 72
[2019-10-09] MEDS: CYANOCOBALAMIN 1,000 MCG TABLET 1000 MCG PO (08:44)
[2019-10-09] MEDS: FUROSEMIDE 80 MG TABLET PO ×2 (08:44→17:45)
[2019-10-09] MEDS: ISOSORBIDE MONONITRATE 60 MG TAB.ER.24H PO (08:44)
[2019-10-09] MEDS: CLOPIDOGREL BISULFATE 75 MG TABLET PO (08:44)
[2019-10-09] MEDS: PANTOPRAZOLE 40 MG TABLET PO (08:44)
[2019-10-09] MEDS: DOCUSATE SODIUM 100 MG CAPSULE PO ×2 (08:44→20:28)
[2019-10-09] MEDS: hydrALAZINE HCL 25 MG TABLET PO ×2 (08:44→20:28)
[2019-10-09] MEDS: METOPROLOL SUCCINATE EXT REL 100 MG TABCR PO (08:44)
[2019-10-09] MEDS: GABAPENTIN 100 MG CAPSULE PO ×3 (08:45→17:44)
[2019-10-09] MEDS: polyethylene glycoL 3350 17 GM POWD.PACK PO (09:00)
[2019-10-09] MEDS: cloNIDine HCL 0.1 MG TABLET PO ×2 (09:00→20:29)
[2019-10-09 12:07] LABS: Glucose Point of Care 142 (65-105)
--- NOTE | 2019-10-09 12:28 | PM.IMPN ---
Progress Note: A&P Assessment and Plan (1) Diabetes mellitus with hypoglycemia: Code(s): E11.649 - Type 2 diabetes mellitus with hypoglycemia without coma Status: Acute Assessment and Plan: Sugars are better off DM Medications I would recommend not to resume glipizide in this patient with ESRD. We will get a Hb A1c is 5.3% I would recommend no further therapy for her diabetes other than diet. I will sign off the case as sugars are better and pt is progressing well. (2) Diabetic infection of right foot: Code(s): E11.628 - Type 2 diabetes mellitus with other skin complications; L08.9 - Local infection of the skin and subcutaneous tissue, unspecified Status: Acute Assessment and Plan: She has a BKA. (3) End stage renal disease: Code(s): N18.6 - End stage renal disease Status: Acute Assessment and Plan: On HD. follow recommendatioms from Dr Carey (4) Coronary artery disease: Code(s): I25.10 - Atherosclerotic heart disease of [place] coronary artery without angina pectoris Status: Acute Assessment and Plan: Stable, continue atorvastatin, plavix. (5) Peripheral vascular disease: Code(s): I73.9 - Peripheral vascular disease, unspecified Status: Acute Assessment and Plan: Atorvastatin, plavix. Subjective Date/time seen: 10/09/19 12:28 Interval history: 74 year old female with history of end-stage renal disease on hemodialysis, diabetes status post right BKA after patient was diagnosed with severe diabetic wound, the patient is here in [facility] for rehab, we are consulted for DM management.Pt appears somewhat sad, both and at bedside planning for special mobility van and prosthesis later. Sugars better, wound heeling on toe, stump checked yesterday by DR Dempsey, and appears clean Review of Systems Review of Systems: All systems reviewed & are unremarkable except as noted in HPI and below Exam Const: General: comfortable and no acute distress Neck: Neck: supple and no JVD Resp: Effort & Inspection: normal respiratory effort Auscultation: clear to auscultation bilaterally Cardio: Rate: regular rate Rhythm: regular rhythm Other: No bradycardia or tachycardia. GI: Auscultation: normal bowel sounds Skin: General skin exam: normal color Neuro: Speech: normal speech Motor exam (neuro): 5/5 motor strength present throughout and Normal motor muscle tone present throughout Sensory Exam: normal sensation Extrem: General: normal to inspection Other: Right BKA left foot dry DM wound on big toe, dry wound on heel Psych: Affect: Anxious affect present Objective Data Vital Signs Vital Signs: Vital Signs - 24 hr 10/08/19 14:00 10/08/19 15:00 10/08/19 15:08 Temperature 36.2 C L 36.2 C L Pulse Rate 74 75 75 Respiratory Rate 20 16 Blood Pressure 149/55 H 147/73 H 147/73 H Pulse Oximetry 98 10/08/19 15:15 10/08/19 15:30 10/08/19 15:45 Temperature Pulse Rate 75 66 64 Respiratory Rate Blood Pressure 147/73 H 138/56 L 170/56 H Pulse Oximetry 10/08/19 16:00 10/08/19 16:15 10/08/19 16:30 Temperature Pulse Rate 68 69 72 Respiratory Rate Blood Pressure 156/63 H 151/59 H 164/67 H Pulse Oximetry 10/08/19 16:45 10/08/19 17:00 10/08/19 17:15 Temperature Pulse Rate 74 72 75 Respiratory Rate Blood Pressure 155/47 H 153/58 H 170/45 H Pulse Oximetry 10/08/19 17:30 10/08/19 17:45 10/08/19 18:00 Temperature Pulse Rate 82 73 73 Respiratory Rate Blood Pressure 144/61 H 149/59 H 129/50 L Pulse Oximetry 10/08/19 18:08 10/08/19 18:15 10/08/19 22:00 Temperature 36.9 C 37.1 C Pulse Rate 75 77 88 Respiratory Rate 16 19 Blood Pressure 145/57 H 151/61 H 149/47 H Pulse Oximetry 95 10/09/19 06:00 10/09/19 08:44 Temperature 36.4 C Pulse Rate 72 72 Respiratory Rate 18 Blood Pressure 141/43 H Pulse Oximetry 100 Intake/Output Intake/Output:
[2019-10-09 14:00] VITALS: BP 157/65; PULSE 86; RESP 22; TEMP 37.4; O2SAT 99
--- NOTE | 2019-10-09 14:30 | WPDNEURORHBP ---
Subjective Date/time seen: 10/09/19 14:30 Interval history: patient is with right BKA family training is being done her was there and the that both her doing fairly well in the family training she denies any headache nausea vomiting chest pain shortness of breath fever chills sore throat Review of Systems Review of Systems: All systems reviewed & are unremarkable except as noted in HPI and below Functional Status Transfers Ability Ability to Transfer In/Out of Chair: Minimum Assistance X 1 Exam Const: General: comfortable and no acute distress HENMT: General nose exam: Normal nares present Mouth: Yes moist mucous membranes Eyes: General: appearance normal, both eyes and all related structures Neck: Neck: supple and no JVD Resp: Effort & Inspection: normal respiratory effort Auscultation: clear to auscultation bilaterally Cardio: Rate: regular rate Rhythm: regular rhythm GI: GI Palp: Yes Soft to palpation Auscultation: normal bowel sounds Skin: General skin exam: normal color and no rashes or lesions noted Neuro: Other: patient's neuro is improving strength is improving she is working with the rehab quite well evidence of peripheral neuropathy peripheral vascular disease remained stable Extrem: Other: right BKA is decent left heel is improving Psych: Mental Status: mental status grossly normal Objective Data Vital Signs Vital Signs: Vital Signs - 24 hr 10/08/19 15:00 10/08/19 15:08 10/08/19 15:15 Temperature 36.2 C L Pulse Rate 75 75 75 Respiratory Rate 16 Blood Pressure 147/73 H 147/73 H 147/73 H Pulse Oximetry 10/08/19 15:30 10/08/19 15:45 10/08/19 16:00 Temperature Pulse Rate 66 64 68 Respiratory Rate Blood Pressure 138/56 L 170/56 H 156/63 H Pulse Oximetry 10/08/19 16:15 10/08/19 16:30 10/08/19 16:45 Temperature Pulse Rate 69 72 74 Respiratory Rate Blood Pressure 151/59 H 164/67 H 155/47 H Pulse Oximetry 10/08/19 17:00 10/08/19 17:15 10/08/19 17:30 Temperature Pulse Rate 72 75 82 Respiratory Rate Blood Pressure 153/58 H 170/45 H 144/61 H Pulse Oximetry 10/08/19 17:45 10/08/19 18:00 10/08/19 18:08 Temperature Pulse Rate 73 73 75 Respiratory Rate Blood Pressure 149/59 H 129/50 L 145/57 H Pulse Oximetry 10/08/19 18:15 10/08/19 22:00 10/09/19 06:00 Temperature 36.9 C 37.1 C 36.4 C Pulse Rate 77 88 72 Respiratory Rate 16 19 18 Blood Pressure 151/61 H 149/47 H 141/43 H Pulse Oximetry 95 100 10/09/19 08:44 Temperature Pulse Rate 72 Respiratory Rate Blood Pressure Pulse Oximetry Intake/Output Intake/Output: Intake & Output 10/06/19 10/07/19 10/08/19 10/09/19 23:59 23:59 23:59 23:59 Intake Total 520 1120 480 240 Output Total 1999 200 1999 Balance -1480 920 -1520 240 Meds/Results Medications: Active Medications Generic Name Dose Route Start Last Admin Trade Name Freq PRN Reason Stop Dose Admin Acetaminophen 500 mg 09/30/19 14:48 10/01/19 04:41 Tylenol Tablet PO 500 mg Q6H PRN Administration Pain (Scale Score 4-6) Hydrocodone Bitart/Acetaminophen 1 tab 09/30/19 14:48 10/09/19 09:24 [place] 7.5-325 Mg PO 1 tab Q4H PRN Administration Pain (Scale Score 7-10) Albuterol 2 puff 09/30/19 16:52 Proventil Hfa INHALATION 10/14/19 16:48 QIDRT PRN Wheezing Anastrozole 1 mg 10/01/19 09:00 10/09/19 08:42 Arimidex PO 10/31/19 09:01 1 mg DAILY MAYLIN Administration Apixaban 2.5 mg 09/30/19 17:00 10/09/19 08:42 Eliquis PO 2.5 mg BID MAYLIN Administration Atorvastatin Calcium 40 mg 09/30/19 21:00 10/08/19 19:57 Lipitor PO 40 mg HS MAYLIN Administration Clonidine HCl 0.1 mg 09/30/19 21:00 10/08/19 19:57 Catapres PO 0.1 mg Q12HR MAYLIN Administration Clopidogrel Bisulfate 75 mg 10/01/19 09:00 10/09/19 08:44 Plavix PO 75 mg DAILY MAYLIN Administration Cyanocobalamin 1,000 mcg 10/01/19 09:00 10/09/19 08:
[2019-10-09 17:08] LABS: Glucose Point of Care 106 (65-105)
[2019-10-09] MEDS: ATORVASTATIN 40 MG TABLET PO (20:28)
[2019-10-09 21:12] LABS: Glucose Point of Care 172 (65-105)
[2019-10-09 21:51] VITALS: BP 149/49; PULSE 71; RESP 18; TEMP 37.1; O2SAT 96
[2019-10-10] VITALS (12 sets, daily range): BP systolic 73–192; BP diastolic 33–73; PULSE 53–85; RESP 16–20; TEMP 36.5–36.9; O2SAT 95–98
[2019-10-10 06:47] LABS: Glucose Point of Care 101 (65-105)
[2019-10-10 06:59] LABS: Albumin Level 2.6 g/dL (3.5-5.1); Blood Urea Nitrogen 19 mg/dL (7-17); Calcium 9.1 mg/dL (8.4-10.2); Carbon Dioxide 25 mmol/L (22-30); Chloride 100 mmol/L (98-107); Estimated CRCL calculation 12 ml/min; Estimated Glomerular Filt Rate 13; Glucose 98 mg/dL (65-105); Phosphorus 4.1 mg/dL (2.5-4.5); Potassium 4.3 mmol/L (3.4-5.0); Sodium 131 mmol/L (137-145)
[2019-10-10] MEDS: SEVELAMER CARBONATE 800 MG TABLET PO (09:15)
[2019-10-10] MEDS: CHOLECALCIFEROL 1,000 UNIT TABLET 2000 UNITS PO (09:15)
[2019-10-10] MEDS: APIXABAN 2.5 MG TABLET PO ×2 (09:15→19:46)
[2019-10-10] MEDS: ANASTROZOLE (*CHEMO) 1 MG TABLET PO (09:15)
[2019-10-10] MEDS: cloNIDine HCL 0.1 MG TABLET PO ×2 (09:16→20:28)
[2019-10-10] MEDS: CYANOCOBALAMIN 1,000 MCG TABLET 1000 MCG PO (09:16)
[2019-10-10] MEDS: FUROSEMIDE 80 MG TABLET PO ×2 (09:16→19:46)
[2019-10-10] MEDS: GABAPENTIN 100 MG CAPSULE PO ×3 (09:16→19:47)
[2019-10-10] MEDS: DOCUSATE SODIUM 100 MG CAPSULE PO ×2 (09:16→20:28)
[2019-10-10] MEDS: CLOPIDOGREL BISULFATE 75 MG TABLET PO (09:16)
[2019-10-10] MEDS: PANTOPRAZOLE 40 MG TABLET PO (09:17)
[2019-10-10] MEDS: hydrALAZINE HCL 25 MG TABLET PO ×2 (09:17→20:28)
[2019-10-10] MEDS: METOPROLOL SUCCINATE EXT REL 100 MG TABCR PO (09:17)
[2019-10-10] MEDS: ISOSORBIDE MONONITRATE 60 MG TAB.ER.24H PO (09:17)
[2019-10-10] MEDS: VITAMIN B CMPLX/VIT C/FOLIC AC 1 CAPSULE 1 CAP PO (09:17)
[2019-10-10] MEDS: polyethylene glycoL 3350 17 GM POWD.PACK PO (09:17)
[2019-10-10 12:20] LABS: Glucose Point of Care 140 (65-105)
--- NOTE | 2019-10-10 12:44 | PM.PNNEP ---
Progress Note: A&P Assessment and Plan (1) End stage renal disease: Code(s): N18.6 - End stage renal disease Status: Acute Assessment and Plan: HD today and continue T/T/S schedule follow electrolytes, volume status, and clearance (2) Congestive heart failure: Code(s): I50.9 - Heart failure, unspecified Status: Acute Assessment and Plan: volume status appears stable fluid removal with HD to maintain euvolemia (3) Coronary artery disease: Code(s): I25.10 - Atherosclerotic heart disease of [place] coronary artery without angina pectoris Status: Acute Assessment and Plan: appears stable recent myocardial infarction with stents placed continue current medical therapy (4) 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 Subjective Date/time seen: 10/10/19 12:44 Overall, seems to be doing reasonably well; working with PT/OT as tolerated; no apparent distress voiced at this time; due for dialysis later today. Exam Narrative: Exam Narrative: General: WD/WN female in NAD Heart: normal S1 and S2; no rub Lungs: clear to auscultation Abdomen: soft, nontender, nondistended, positive bowel sounds Extremities: no cyanosis or clubbing; no edema Skin: warm and intact Objective Data Vital Signs Vital Signs: Vital Signs Temp Pulse Resp BP Pulse Ox 10/10/19 09:17 72 10/10/19 05:32 36.5 C 72 16 158/62 H 95 10/09/19 21:51 37.1 C 71 18 149/49 H 96 10/09/19 14:00 37.4 C 86 22 H 157/65 H 99 Meds/Results Medications: Active Medications Generic Name Dose Route Start Last Admin Trade Name Freq PRN Reason Stop Dose Admin Acetaminophen 500 mg 09/30/19 14:48 10/01/19 04:41 Tylenol Tablet PO 500 mg Q6H PRN Administration Pain (Scale Score 4-6) Hydrocodone Bitart/Acetaminophen 1 tab 09/30/19 14:48 10/10/19 02:54 [place] 7.5-325 Mg PO 1 tab Q4H PRN Administration Pain (Scale Score 7-10) Albuterol 2 puff 09/30/19 16:52 Proventil Hfa INHALATION 10/14/19 16:48 QIDRT PRN Wheezing Anastrozole 1 mg 10/01/19 09:00 10/10/19 09:15 Arimidex PO 10/31/19 09:01 1 mg DAILY MAYLIN Administration Apixaban 2.5 mg 09/30/19 17:00 10/10/19 09:15 Eliquis PO 2.5 mg BID MAYLIN Administration Atorvastatin Calcium 40 mg 09/30/19 21:00 10/09/19 20:28 Lipitor PO 40 mg HS MAYLIN Administration Clonidine HCl 0.1 mg 09/30/19 21:00 10/10/19 09:16 Catapres PO 0.1 mg Q12HR MAYLIN Administration Clopidogrel Bisulfate 75 mg 10/01/19 09:00 10/10/19 09:16 Plavix PO 75 mg DAILY MAYLIN Administration Cyanocobalamin 1,000 mcg 10/01/19 09:00 10/10/19 09:16 Vitamin B-12 Tab PO 1,000 mcg QAM MAYLIN Administration Dextrose 12.5 gm 10/01/19 11:44 Dextrose 50% Syringe IV PUSH PRN PRN Hypoglycemia Protocol Docusate Sodium 100 mg 10/05/19 21:00 10/10/19 09:16 Colace Capsule PO 100 mg Q12HR MAYLIN Administration Epoetin Lauro-epbx 20,000 units 10/10/19 19:14 Retacrit IV PUSH 10/10/19 19:15 ONCE ONE Furosemide 80 mg 09/30/19 17:00 10/10/19 09:16 Lasix Tablet PO 80 mg BID MAYLIN Administration Gabapentin 100 mg 10/05/19 18:00 10/10/19 09:16 Neurontin PO 100 mg TID MAYLIN Administration Glucagon 1 mg 10/01/19 11:44 Glucagon For Inj IM PRN PRN Hypoglycemia Protocol Glucose 15 gm 10/01/19 11:44 Glutose 15 PO PRN
[2019-10-10 19:47] LABS: Glucose Point of Care 120 (65-105)
[2019-10-10] MEDS: ATORVASTATIN 40 MG TABLET PO (20:28)
[2019-10-11 05:18] LABS: Albumin Level 2.6 g/dL (3.5-5.1); Blood Urea Nitrogen 9 mg/dL (7-17); Calcium 8.7 mg/dL (8.4-10.2); Carbon Dioxide 29 mmol/L (22-30); Chloride 100 mmol/L (98-107); Estimated CRCL calculation 22 ml/min; Estimated Glomerular Filt Rate 26; Glucose 100 mg/dL (65-105); Phosphorus 3.2 mg/dL (2.5-4.5); Sodium 133 mmol/L (137-145)
[2019-10-11 05:48] VITALS: BP 149/52; PULSE 63; RESP 18; TEMP 36.6; O2SAT 100
[2019-10-11 06:52] LABS: Glucose Point of Care 106 (65-105)
[2019-10-11] MEDS: ANASTROZOLE (*CHEMO) 1 MG TABLET PO (08:45)
[2019-10-11] MEDS: APIXABAN 2.5 MG TABLET PO ×2 (08:45→17:33)
[2019-10-11] MEDS: cloNIDine HCL 0.1 MG TABLET PO ×2 (08:45→20:17)
[2019-10-11] MEDS: SEVELAMER CARBONATE 800 MG TABLET PO (08:45)
[2019-10-11] MEDS: CLOPIDOGREL BISULFATE 75 MG TABLET PO (08:47)
[2019-10-11] MEDS: CYANOCOBALAMIN 1,000 MCG TABLET 1000 MCG PO (08:47)
[2019-10-11] MEDS: DOCUSATE SODIUM 100 MG CAPSULE PO ×2 (08:48→20:14)
[2019-10-11 08:49] VITALS: PULSE 63
[2019-10-11] MEDS: hydrALAZINE HCL 25 MG TABLET PO ×2 (08:49→20:14)
[2019-10-11] MEDS: ISOSORBIDE MONONITRATE 60 MG TAB.ER.24H PO (08:49)
[2019-10-11] MEDS: METOPROLOL SUCCINATE EXT REL 100 MG TABCR PO (08:49)
[2019-10-11] MEDS: GABAPENTIN 100 MG CAPSULE PO ×3 (08:49→17:33)
[2019-10-11] MEDS: PANTOPRAZOLE 40 MG TABLET PO (08:50)
[2019-10-11] MEDS: VITAMIN B CMPLX/VIT C/FOLIC AC 1 CAPSULE 1 CAP PO (08:51)
[2019-10-11] MEDS: CHOLECALCIFEROL 1,000 UNIT TABLET 2000 UNITS PO (10:33)
[2019-10-11] MEDS: FUROSEMIDE 80 MG TABLET PO ×2 (10:33→17:33)
--- NOTE | 2019-10-11 13:26 | WPDNEURORHBP ---
Subjective Date/time seen: 10/11/19 13:26 S/P RBKA Review of Systems Review of Systems: All systems reviewed & are unremarkable except as noted in HPI and below Functional Status Transfers Ability Ability to Transfer In/Out of Chair: Minimum Assistance X 1 Exam Const: General: cooperative HENMT: Head: normal to inspection Eyes: General: appearance normal, both eyes and all related structures Neck: Neck: full ROM and no lymphadenopathy Resp: Effort & Inspection: normal respiratory effort Auscultation: clear to auscultation bilaterally Cardio: Rate: regular rate Rhythm: regular rhythm GI: Auscultation: normal bowel sounds Skin: General skin exam: no rashes or lesions noted Neuro: General: patient oriented x3 and moves all extremities Cranial nerves: Yes CN's II-XII intact bilaterally, Yes Equal, round and reactive pupils present, Yes Nystagmus not present, Yes Normal facial strength present, Yes Midline tongue present and Yes Ability to bilaterally elevate shoulders present Cognition (Neuro): normal cognition Speech: normal speech Motor exam (neuro): 5/5 motor strength present throughout (improving) Extrem: General: normal to inspection Psych: Appearance: grossly normal Objective Data Vital Signs Vital Signs: Vital Signs - 24 hr 10/10/19 14:00 10/10/19 16:00 10/10/19 16:15 Temperature 36.9 C Pulse Rate 80 73 75 Respiratory Rate 18 Blood Pressure 148/72 H 172/73 H 172/47 H Pulse Oximetry 97 10/10/19 16:30 10/10/19 17:00 10/10/19 17:15 Temperature Pulse Rate 77 54 L 81 Respiratory Rate Blood Pressure 175/67 H 73/43 L 192/62 H Pulse Oximetry 10/10/19 17:30 10/10/19 17:45 10/10/19 18:00 Temperature Pulse Rate 83 83 53 L Respiratory Rate Blood Pressure 174/46 H 137/33 L 83/40 L Pulse Oximetry 10/10/19 22:00 10/11/19 05:48 10/11/19 08:49 Temperature 36.9 C 36.6 C Pulse Rate 85 63 63 Respiratory Rate 20 18 Blood Pressure 162/72 H 149/52 H Pulse Oximetry 98 100 Intake/Output Intake/Output: Intake & Output 10/08/19 10/09/19 10/10/19 10/11/19 23:59 23:59 23:59 23:59 Intake Total 480 720 960 480 Output Total 1999 Balance -1520 720 960 480 Meds/Results Medications: Active Medications Generic Name Dose Route Start Last Admin Trade Name Freq PRN Reason Stop Dose Admin Acetaminophen 500 mg 09/30/19 14:48 10/01/19 04:41 Tylenol Tablet PO 500 mg Q6H PRN Administration Pain (Scale Score 4-6) Hydrocodone Bitart/Acetaminophen 1 tab 09/30/19 14:48 10/11/19 08:58 [place] 7.5-325 Mg PO 1 tab Q4H PRN Administration Pain (Scale Score 7-10) Albuterol 2 puff 09/30/19 16:52 Proventil Hfa INHALATION 10/14/19 16:48 QIDRT PRN Wheezing Anastrozole 1 mg 10/01/19 09:00 10/11/19 08:45 Arimidex PO 10/31/19 09:01 1 mg DAILY MAYLIN Administration Apixaban 2.5 mg 09/30/19 17:00 10/11/19 08:45 Eliquis PO 2.5 mg BID MAYLIN Administration Atorvastatin Calcium 40 mg 09/30/19 21:00 10/10/19 20:28 Lipitor PO 40 mg HS MAYLIN Administration Clonidine HCl 0.1 mg 09/30/19 21:00 10/11/19 08:45 Catapres PO 0.1 mg Q12HR MAYLIN Administration Clopidogrel Bisulfate 75 mg 10/01/19 09:00 10/11/19 08:47 Plavix PO 75 mg DAILY MAYLIN Administration Cyanocobalamin 1,000 mcg 10/01/19 09:00 10/11/19 08:47 Vitamin B-12 Tab PO 1,000 mcg QAM MAYLIN Administration Dextrose 12.5 gm 10/01/19 11:44 Dextrose 50% Syringe IV PUSH PRN PRN Hypoglycemia Protocol Docusate Sodium 100 mg 10/05/19 21:00 10/11/19 08:48 Colace Capsule PO 100 mg Q12HR MAYLIN Administration Furosemide 80 mg 09/30/19 17:00 10/11/19 10:33 Lasix Tablet PO 80 mg BID MAYLIN Administration Gabapentin 100 mg 10/05/19 18:00 10/11/19 12:15 Neurontin PO 100 mg TID MAYLIN Administration Glucagon 1 mg 10/01/19 11:44 Glucagon For Inj IM PRN PRN Hypoglycemia P
[2019-10-11 14:00] VITALS: BP 138/72; PULSE 86; RESP 18; TEMP 36.6; O2SAT 97
[2019-10-11 17:14] LABS: Glucose Point of Care 121 (65-105)
[2019-10-11] MEDS: ATORVASTATIN 40 MG TABLET PO (20:14)
[2019-10-11 22:00] VITALS: BP 153/71; PULSE 72; RESP 18; TEMP 37.1; O2SAT 96
[2019-10-12 04:58] LABS: Albumin Level 2.5 g/dL (3.5-5.1); Blood Urea Nitrogen 18 mg/dL (7-17); Calcium 9.1 mg/dL (8.4-10.2); Carbon Dioxide 27 mmol/L (22-30); Chloride 98 mmol/L (98-107); Estimated CRCL calculation 14 ml/min; Estimated Glomerular Filt Rate 16; Glucose 105 mg/dL (65-105); Phosphorus 4.1 mg/dL (2.5-4.5); Potassium 4.4 mmol/L (3.4-5.0); Sodium 130 mmol/L (137-145)
[2019-10-12 06:00] VITALS: BP 146/49; PULSE 63; RESP 20; TEMP 36.3; O2SAT 100
[2019-10-12 07:03] LABS: Glucose Point of Care 93 (65-105)
[2019-10-12] MEDS: cloNIDine HCL 0.1 MG TABLET PO ×2 (09:00→21:18)
[2019-10-12] MEDS: polyethylene glycoL 3350 17 GM POWD.PACK PO (09:00)
[2019-10-12] MEDS: GABAPENTIN 100 MG CAPSULE PO ×3 (09:51→17:33)
[2019-10-12] MEDS: FUROSEMIDE 80 MG TABLET PO ×2 (09:51→17:33)
[2019-10-12] MEDS: CHOLECALCIFEROL 1,000 UNIT TABLET 2000 UNITS PO (09:51)
[2019-10-12] MEDS: ISOSORBIDE MONONITRATE 60 MG TAB.ER.24H PO (09:51)
[2019-10-12 09:52] VITALS: PULSE 63
[2019-10-12] MEDS: CLOPIDOGREL BISULFATE 75 MG TABLET PO (09:52)
[2019-10-12] MEDS: ANASTROZOLE (*CHEMO) 1 MG TABLET PO (09:52)
[2019-10-12] MEDS: METOPROLOL SUCCINATE EXT REL 100 MG TABCR PO (09:52)
[2019-10-12] MEDS: hydrALAZINE HCL 25 MG TABLET PO ×2 (09:52→20:01)
[2019-10-12] MEDS: APIXABAN 2.5 MG TABLET PO ×2 (09:52→17:33)
[2019-10-12] MEDS: DOCUSATE SODIUM 100 MG CAPSULE PO ×2 (09:52→20:01)
[2019-10-12] MEDS: SEVELAMER CARBONATE 800 MG TABLET PO (09:53)
[2019-10-12] MEDS: PANTOPRAZOLE 40 MG TABLET PO (09:53)
[2019-10-12] MEDS: CYANOCOBALAMIN 1,000 MCG TABLET 1000 MCG PO (09:53)
[2019-10-12] MEDS: VITAMIN B CMPLX/VIT C/FOLIC AC 1 CAPSULE 1 CAP PO (09:53)
[2019-10-12 12:27] LABS: Glucose Point of Care 114 (65-105)
--- NOTE | 2019-10-12 13:38 | PCCDE ---
diabetes education f/up: current DM meds: none; POC glucose range 10/08- today =93-140mg/dl, 10/05 A1c=5.3% Met with pt; pt was taking Glipizide [employer] and reports she was having hypoglycemia. Advised of A1c results and pt sts that is low for me. Explained this is in the nL range and hospitalist has recommended not to resume Glipizide. Pt v/u. Recommended pt to continue to SMBG OD at home and pt v/u and sts she can do that. Pt denies any questions. Will be available per request.
[2019-10-12 14:00] VITALS: BP 190/65; PULSE 87; RESP 20; TEMP 36.9; O2SAT 99
[2019-10-12 17:23] LABS: Glucose Point of Care 115 (65-105)
[2019-10-12] MEDS: ATORVASTATIN 40 MG TABLET PO (20:01)
[2019-10-12 22:00] VITALS: BP 170/49; PULSE 84; RESP 20; TEMP 37.3; O2SAT 95
[2019-10-13 04:59] LABS: Albumin Level 2.6 g/dL (3.5-5.1); Blood Urea Nitrogen 25 mg/dL (7-17); Calcium 9.2 mg/dL (8.4-10.2); Carbon Dioxide 24 mmol/L (22-30); Chloride 98 mmol/L (98-107); Estimated CRCL calculation 11 ml/min; Estimated Glomerular Filt Rate 12; Glucose 101 mg/dL (65-105); Phosphorus 4.7 mg/dL (2.5-4.5); Potassium 4.7 mmol/L (3.4-5.0); Sodium 131 mmol/L (137-145)
[2019-10-13 06:00] VITALS: BP 186/82; PULSE 78; RESP 18; TEMP 36.6; O2SAT 100
[2019-10-13 07:38] LABS: Glucose Point of Care 108 (65-105)
--- NOTE | 2019-10-13 07:59 | PM.PNNEP ---
Progress Note: A&P Assessment and Plan (1) End stage renal disease: Code(s): N18.6 - End stage renal disease Status: Acute Assessment and Plan: HD today potassium and bicarbonate are okay. Will take off a little bit of fluid today. (2) Congestive heart failure: Code(s): I50.9 - Heart failure, unspecified Status: Acute Assessment and Plan: volume status appears stable fluid removal with HD to maintain euvolemia (3) Coronary artery disease: Code(s): I25.10 - Atherosclerotic heart disease of [place] coronary artery without angina pectoris Status: Acute Assessment and Plan: appears stable No chest pain. 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 (5) Diabetic infection of right foot: Code(s): E11.628 - Type 2 diabetes mellitus with other skin complications; L08.9 - Local infection of the skin and subcutaneous tissue, unspecified Status: Acute Assessment and Plan: Status post below the knee amputation Subjective Date/time seen: 10/13/19 07:59 Interval history: patient is feeling okay Dialysis is due today. Like feels okay. Doing well in physical therapy Review of Systems Cardiovascular: Cardiovascular: Reports no additional cardiovascular complaints Respiratory: Respiratory: Reports no additional respiratory complaints Gastrointestinal: Gastrointestinal: Reports no additional gastrointestinal complaints Genitourinary: Genitourinary: Reports no additional female genitourinary complaints Exam Narrative: Exam Narrative: General: WD/WN female in NAD Heart: normal S1 and S2; no rub Lungs: clear bilaterally Abdomen: soft, nontender, nondistended, positive bowel sounds Extremities: no cyanosis or clubbing; no edema Skin: no rash Objective Data Vital Signs Vital Signs: Vital Signs - 24 hr 10/12/19 09:52 10/12/19 14:00 10/12/19 22:00 Temperature 36.9 C 37.3 C Pulse Rate 63 87 84 Respiratory Rate 20 20 Blood Pressure 190/65 H 170/49 H Pulse Oximetry 99 95 10/13/19 06:00 Temperature 36.6 C Pulse Rate 78 Respiratory Rate 18 Blood Pressure 186/82 H Pulse Oximetry 100 Intake/Output Intake/Output: Intake & Output 10/10/19 10/11/19 10/12/19 10/13/19 23:59 23:59 23:59 23:59 Intake Total 960 720 970 Output Total 600 Balance 960 720 370 Meds/Results Medications: Active Medications Generic Name Dose Route Start Last Admin Trade Name Freq PRN Reason Stop Dose Admin Acetaminophen 500 mg 09/30/19 14:48 10/01/19 04:41 Tylenol Tablet PO 500 mg Q6H PRN Administration Pain (Scale Score 4-6) Hydrocodone Bitart/Acetaminophen 1 tab 09/30/19 14:48 10/13/19 06:59 [place] 7.5-325 Mg PO 1 tab Q4H PRN Administration Pain (Scale Score 7-10) Albuterol 2 puff 09/30/19 16:52 Proventil Hfa INHALATION 10/14/19 16:48 QIDRT PRN Wheezing Anastrozole 1 mg 10/01/19 09:00 10/12/19 09:52 Arimidex PO 10/31/19 09:01 1 mg DAILY MAYLIN Administration Apixaban 2.5 mg 09/30/19 17:00 10/12/19 17:33 Eliquis PO 2.5 mg BID MAYLIN Administration Atorvastatin Calcium 40 mg 09/30/19 21:00 10/12/19 20:01 Lipitor PO 40 mg HS MAYLIN Administration Clonidine HCl 0.1 mg 09/30/19 21:00 10/12/19 21:18 Catapres PO 0.1 mg Q12HR MAYLIN Administration Clopidogrel Bisulfate 75 mg 10/01/19 09:00 10/12/19 09:52 Plavix PO 75 mg DAILY MAYLIN Administration Cyanocobalamin 1,000 mcg 10/01/19 09:00 10/12/19 09:53 Vitamin B-12 Tab PO 1,000 mcg QAM MAYLIN Administration Dextrose 12.5 gm 10/01/19 11:44 Dextrose 50% Syringe IV PUSH PRN PRN Hypoglycemia Protocol D
[2019-10-13] MEDS: DOCUSATE SODIUM 100 MG CAPSULE PO ×2 (09:30→22:54)
[2019-10-13] MEDS: SEVELAMER CARBONATE 800 MG TABLET PO (09:30)
[2019-10-13 09:31] VITALS: PULSE 78
[2019-10-13] MEDS: METOPROLOL SUCCINATE EXT REL 100 MG TABCR PO (09:31)
[2019-10-13] MEDS: ANASTROZOLE (*CHEMO) 1 MG TABLET PO (09:31)
[2019-10-13] MEDS: CYANOCOBALAMIN 1,000 MCG TABLET 1000 MCG PO (09:31)
[2019-10-13] MEDS: VITAMIN B CMPLX/VIT C/FOLIC AC 1 CAPSULE 1 CAP PO (09:31)
[2019-10-13] MEDS: PANTOPRAZOLE 40 MG TABLET PO (09:31)
[2019-10-13] MEDS: CHOLECALCIFEROL 1,000 UNIT TABLET 2000 UNITS PO (09:31)
[2019-10-13] MEDS: FUROSEMIDE 80 MG TABLET PO ×2 (09:31→17:50)
[2019-10-13] MEDS: ISOSORBIDE MONONITRATE 60 MG TAB.ER.24H PO (09:31)
[2019-10-13] MEDS: APIXABAN 2.5 MG TABLET PO ×2 (09:31→17:50)
[2019-10-13] MEDS: hydrALAZINE HCL 25 MG TABLET PO ×2 (09:32→22:55)
[2019-10-13] MEDS: GABAPENTIN 100 MG CAPSULE 200 MG PO ×3 (09:32→17:49)
[2019-10-13] MEDS: CLOPIDOGREL BISULFATE 75 MG TABLET PO (09:33)
[2019-10-13] MEDS: polyethylene glycoL 3350 17 GM POWD.PACK PO (09:44)
[2019-10-13] MEDS: cloNIDine HCL 0.1 MG TABLET PO ×2 (10:29→22:54)
--- NOTE | 2019-10-13 13:11 | PCNFU ---
Nutrition Follow-Up Complete: Increased protein/calorie needs related to increased demands as evidenced by patient on dialysis with recent BKA and pressure ulcer. Goal: Patient to consume 75% of meals/supplements Patient is meeting goal. Pt current nutrition is regular. Nutrition recommendation: Agree with current recommendations. Recommend continuing glucerna once a day with dinner. Last recorded weight is 78.5 kg. Bowel Motility: 10/11 last reported bowel movement Labs Reviewed: Alb (2.6) Na (131) GFR (12) BUN (25) Cr (3.8) Meds Noted: Albuterol, Armidex, Vitamin B12, Lasix, Glucotrol, Nephrocaps, Protonix, Miralax, Renvela, Vitamin D, Eliquis, Colace, Plavix Additional Notes: Patient reported good appetite and no diet related concerns. Patient states chicken is dry and wishes fresh fruit was available in exchange for canned fruit. Patient only consumed 25% of lunch today. On average patient is consuming 75% or more of meals. Follow up in 7 days.
--- NOTE | 2019-10-13 13:29 | PCNSR ---
On 10/13/19, the student, Fahad Lynn, provided care and completed [facility] on this patient. I have reviewed the student's documentation and agree with the findings.
--- NOTE | 2019-10-13 13:34 | WPDNEURORHBP ---
Subjective Date/time seen: 10/13/19 13:34 Interval history: this 74-year-old woman with significant peripheral vascular disease here post right BKA the case was discussed in the team conference with the physical therapist occupational therapist and other modalities were present questions were answered both from her and from her Rylan The patient denies any headache nausea vomiting chest pain shortness of breath fever chills sore throat The dialysis going well and she is tolerating it quite well Review of Systems Review of Systems: All systems reviewed & are unremarkable except as noted in HPI and below Functional Status Ambulation Ability Ambulation Assistive Devices: Parallel Bars Transfers Ability Ability to Transfer In/Out of Chair: Minimum Assistance X 1 Exam Const: General: comfortable and no acute distress HENMT: General nose exam: Normal nares present Mouth: Yes moist mucous membranes Eyes: General: appearance normal, both eyes and all related structures Neck: Neck: supple and no JVD Resp: Effort & Inspection: normal respiratory effort Auscultation: clear to auscultation bilaterally Cardio: Rate: regular rate Rhythm: regular rhythm GI: GI Palp: Yes Soft to palpation Auscultation: normal bowel sounds Skin: General skin exam: normal color and no rashes or lesions noted Neuro: Other: patient is awake and alert well oriented follows all commands well her weakness is improving her endurance improving and she is doing fairly decently in over rehab and has improved evidence of a peripheral neuropathy and also the peripheral vascular disease stable Extrem: Other: the blister over the right coleman has been seen and is really has been drained and the left heel shows asked her and she is on heel protection regimen for her to be discharged wheelchair is being arranged as suspect the is going to by 1 or find something else for the transportation from here family training is in progress Psych: Mental Status: mental status grossly normal Objective Data Vital Signs Vital Signs: Vital Signs - 24 hr 10/12/19 14:00 10/12/19 22:00 10/13/19 06:00 Temperature 36.9 C 37.3 C 36.6 C Pulse Rate 87 84 78 Respiratory Rate 20 18 Blood Pressure 190/65 H 170/49 H 186/82 H Pulse Oximetry 99 95 100 10/13/19 09:31 Temperature Pulse Rate 78 Respiratory Rate Blood Pressure Pulse Oximetry Intake/Output Intake/Output: Intake & Output 10/10/19 10/11/19 10/12/1920 23:59 23:59 23:59 23:59 Intake Total 960 720 970 480 Output Total 600 Balance 960 720 370 480 Meds/Results Medications: Active Medications Generic Name Dose Route Start Last Admin Trade Name Freq PRN Reason Stop Dose Admin Acetaminophen 500 mg 09/30/19 14:48 10/01/19 04:41 Tylenol Tablet PO 500 mg Q6H PRN Administration Pain (Scale Score 4-6) Hydrocodone Bitart/Acetaminophen 1 tab 09/30/19 14:48 10/13/19 13:19 [place] 7.5-325 Mg PO 1 tab Q4H PRN Administration Pain (Scale Score 7-10) Albuterol 2 puff 09/30/19 16:52 Proventil Hfa INHALATION 10/14/19 16:48 QIDRT PRN Wheezing Anastrozole 1 mg 10/01/19 09:00 10/13/19 09:31 Arimidex PO 10/31/19 09:01 1 mg DAILY MAYLIN Administration Apixaban 2.5 mg 09/30/19 17:00 10/13/19 09:31 Eliquis PO 2.5 mg BID MAYLIN Administration Atorvastatin Calcium 40 mg 09/30/19 21:00 10/12/19 20:01 Lipitor PO 40 mg HS MAYLIN Administration Clonidine HCl 0.1 mg 09/30/19 21:00 10/13/19 10:29 Catapres PO 0.1 mg Q12HR MAYLIN Administration Clopidogrel Bisulfate 75 mg 10/01/19 09:00 10/13/19 09:33 Plavix PO 75 mg DAILY MAYLIN Administration Cyanocobalamin 1,000 mcg 10/01/19 09:00 10/13/19 09:31 Vitamin B-12 Tab PO 1,000 mcg QAM MAYLIN Administration Dextrose 12.5 gm 10/01/19 11:44 Dextrose 50% Syringe IV PUSH PRN PRN Hypoglycemia Protocol Docusate Sodium 100 mg 10/05/19
[2019-10-13 14:00] VITALS: BP 148/56; PULSE 86; RESP 20; TEMP 36.6; O2SAT 97
[2019-10-13 16:49] LABS: Glucose Point of Care 116 (65-105)
[2019-10-13 18:45] VITALS: BP 160/72; PULSE 78; RESP 22; TEMP 36; TEMP 36.9
[2019-10-13 22:00] VITALS: BP 169/54; PULSE 87; RESP 19; TEMP 36.6; O2SAT 95
[2019-10-13 22:38] VITALS: BP 160/72; PULSE 80; RESP 20; TEMP 36.3
[2019-10-13] MEDS: ATORVASTATIN 40 MG TABLET PO (22:54)
[2019-10-14 05:57] VITALS: BP 148/50; PULSE 67; RESP 19; TEMP 36.8; O2SAT 100
[2019-10-14 07:13] LABS: Glucose Point of Care 87 (65-105)
[2019-10-14] MEDS: PROCHLORPERAZINE MALEATE 5 MG TABLET PO (07:47)
[2019-10-14] MEDS: GABAPENTIN 100 MG CAPSULE 200 MG PO ×3 (10:07→17:20)
[2019-10-14 10:08] VITALS: PULSE 68
[2019-10-14] MEDS: FUROSEMIDE 80 MG TABLET PO ×2 (10:08→17:20)
[2019-10-14] MEDS: CYANOCOBALAMIN 1,000 MCG TABLET 1000 MCG PO (10:08)
[2019-10-14] MEDS: DOCUSATE SODIUM 100 MG CAPSULE PO ×2 (10:08→20:40)
[2019-10-14] MEDS: METOPROLOL SUCCINATE EXT REL 100 MG TABCR PO (10:08)
[2019-10-14] MEDS: hydrALAZINE HCL 25 MG TABLET PO ×2 (10:09→20:40)
[2019-10-14] MEDS: APIXABAN 2.5 MG TABLET PO ×2 (10:10→17:20)
[2019-10-14] MEDS: ISOSORBIDE MONONITRATE 60 MG TAB.ER.24H PO (10:10)
[2019-10-14] MEDS: CLOPIDOGREL BISULFATE 75 MG TABLET PO (10:10)
[2019-10-14] MEDS: LORATADINE 10 MG TABLET PO (10:10)
[2019-10-14] MEDS: VITAMIN B CMPLX/VIT C/FOLIC AC 1 CAPSULE 1 CAP PO (10:10)
[2019-10-14] MEDS: CHOLECALCIFEROL 1,000 UNIT TABLET 2000 UNITS PO (10:10)
[2019-10-14] MEDS: ANASTROZOLE (*CHEMO) 1 MG TABLET PO (10:10)
[2019-10-14] MEDS: PANTOPRAZOLE 40 MG TABLET PO (10:11)
[2019-10-14] MEDS: SEVELAMER CARBONATE 800 MG TABLET PO (10:11)
[2019-10-14] MEDS: cloNIDine HCL 0.1 MG TABLET PO ×2 (10:14→20:40)
[2019-10-14] MEDS: polyethylene glycoL 3350 17 GM POWD.PACK PO (10:16)
[2019-10-14 14:00] VITALS: BP 142/58; PULSE 78; RESP 18; TEMP 36.6; O2SAT 98
--- NOTE | 2019-10-14 14:17 | WPDNEURORHBP ---
Subjective Date/time seen: 10/14/19 14:17 Interval history: this 74-year-old is here after having had right BKA the is trying to get wheelchair when for the discharge planning the patient is stable getting her dialysis and doing fairly well denies any headache nausea vomiting chest pain shortness of breath fever chills sore throat Review of Systems Review of Systems: All systems reviewed & are unremarkable except as noted in HPI and below Functional Status Ambulation Ability Ambulation Assistive Devices: Parallel Bars Transfers Ability Ability to Transfer In/Out of Chair: Minimum Assistance X 1 Exam Const: General: comfortable and no acute distress HENMT: General nose exam: Normal nares present Mouth: Yes moist mucous membranes Eyes: General: appearance normal, both eyes and all related structures Neck: Neck: supple and no JVD Resp: Effort & Inspection: normal respiratory effort Auscultation: clear to auscultation bilaterally Cardio: Rate: regular rate Rhythm: regular rhythm GI: GI Palp: Yes Soft to palpation Auscultation: normal bowel sounds Skin: General skin exam: normal color and no rashes or lesions noted Neuro: Other: patient remains awake and alert has no distress progressing rehab of course with the underlying medical issues which are stable Extrem: Other: right BKA Psych: Mental Status: mental status grossly normal Objective Data Vital Signs Vital Signs: Vital Signs - 24 hr 10/13/19 18:45 10/13/19 22:00 10/13/19 22:38 Temperature 36.9 C 36.6 C 36.3 C L Pulse Rate 78 87 80 Respiratory Rate 22 H 19 20 Blood Pressure 160/72 H 169/54 H 160/72 H Pulse Oximetry 95 10/14/19 05:57 10/14/19 10:08 10/14/19 14:00 Temperature 36.8 C 36.6 C Pulse Rate 67 68 78 Respiratory Rate 19 18 Blood Pressure 148/50 H 142/58 H Pulse Oximetry 100 98 Intake/Output Intake/Output: Intake & Output 10/11/19 10/12/19 10/13/19 10/14/19 23:59 23:59 23:59 23:59 Intake Total 087 113 0524 600 Output Total 600 Balance 332 199 9580 600 Meds/Results Medications: Active Medications Generic Name Dose Route Start Last Admin Trade Name Freq PRN Reason Stop Dose Admin Acetaminophen 500 mg 09/30/19 14:48 10/01/19 04:41 Tylenol Tablet PO 500 mg Q6H PRN Administration Pain (Scale Score 4-6) Hydrocodone Bitart/Acetaminophen 1 tab 09/30/19 14:48 10/14/19 04:16 [place] 7.5-325 Mg PO 1 tab Q4H PRN Administration Pain (Scale Score 7-10) Albuterol 2 puff 09/30/19 16:52 Proventil Hfa INHALATION 10/14/19 16:48 QIDRT PRN Wheezing Anastrozole 1 mg 10/01/19 09:00 10/14/19 10:10 Arimidex PO 10/31/19 09:01 1 mg DAILY MAYLIN Administration Apixaban 2.5 mg 09/30/19 17:00 10/14/19 10:10 Eliquis PO 2.5 mg BID MAYLIN Administration Atorvastatin Calcium 40 mg 09/30/19 21:00 10/13/19 22:54 Lipitor PO 40 mg HS MAYLIN Administration Clonidine HCl 0.1 mg 09/30/19 21:00 10/14/19 10:14 Catapres PO 0.1 mg Q12HR MAYLIN Administration Clopidogrel Bisulfate 75 mg 10/01/19 09:00 10/14/19 10:10 Plavix PO 75 mg DAILY MAYLIN Administration Cyanocobalamin 1,000 mcg 10/01/19 09:00 10/14/19 10:08 Vitamin B-12 Tab PO 1,000 mcg QAM MAYLIN Administration Dextrose 12.5 gm 10/01/19 11:44 Dextrose 50% Syringe IV PUSH PRN PRN Hypoglycemia Protocol Docusate Sodium 100 mg 10/05/19 21:00 10/14/19 10:08 Colace Capsule PO 100 mg Q12HR MAYLIN Administration Furosemide 80 mg 09/30/19 17:00 10/14/19 10:08 Lasix Tablet PO 80 mg BID MAYLIN Administration Gabapentin 200 mg 10/13/19 17:00 10/14/19 13:26 Neurontin PO 200 mg TID MAYLIN Administration Glucagon 1 mg 10/01/19 11:44 Glucagon For Inj IM PRN PRN Hypoglycemia Protocol Glucose 15 gm 10/01/19 11:44 Glutose 15 PO PRN PRN Hypoglycemia Protocol Hydralazine HCl 25 mg 09/30/19 21:00 10/13
[2019-10-14 17:10] LABS: Glucose Point of Care 120 (65-105)
[2019-10-14] MEDS: MELATONIN 5 MG TABLET PO (20:40)
[2019-10-14] MEDS: ATORVASTATIN 40 MG TABLET PO (20:40)
[2019-10-14 20:55] VITALS: BP 131/44; PULSE 76; RESP 20; TEMP 36.6; O2SAT 95
[2019-10-15] VITALS (17 sets, daily range): BP systolic 110–192; BP diastolic 38–76; PULSE 71–96; RESP 17–20; TEMP 35.3–36.8; O2SAT 96–100
[2019-10-15 07:25] LABS: Basophils Percent Auto 0.4 % (0.2-1.2); Eosinophils Absolute Auto 0.4 K/mm3 (0-0.3); Eosinophils Percent Auto 6.2 % (0-4.4); Hematocrit 26.5 % (37.0-47.0); Hemoglobin 8.5 g/dL (12.0-15.0); Immature Granulocyte Absolute 0.03 K/mm3 (0.00-0.031); Immature Granulocyte Percent A 0.4 % (0-0.5); Lymphocytes Absolute Auto 0.56 K/mm3 (0.9-3.2); Lymphocytes Percent Auto 8.1 % (18.3-44.2); Mean Corpuscular HGB Conc 32.1 g/dl (32-36); Mean Corpuscular Hemoglobin 32.7 pg (26-34); Mean Corpuscular Volume 101.9 fl (80-100); Mean Platelet Volume 8.5 fl (7.4-10.4); Monocytes Absolute Auto 0.6 K/mm3 (0.1-0.6); Monocytes Percent Auto 8.5 % (2.6-8.5); Neutrophils Absolute Auto 5.3 K/mm3 (1.3-6.7); Neutrophils Percent Auto 76.4 % (45.5-73.1); Platelet Count Result 318 k/mm3 (150-375); Red Cell Distribution Width 16.6 % (11.5-14.5); White Blood Count 6.9 K/mm3 (4.5-10.0)
[2019-10-15 07:25] LABS: Glucose Point of Care 85 (65-105)
[2019-10-15 07:37] LABS: Anion Gap 10.5 mmol/L (7-16); Blood Urea Nitrogen 18 mg/dL (7-17); Calcium 9.2 mg/dL (8.4-10.2); Carbon Dioxide 28 mmol/L (22-30); Chloride 94 mmol/L (98-107); Estimated CRCL calculation 14 ml/min; Estimated Glomerular Filt Rate 15; Glucose 97 mg/dL (65-105); Potassium 4.5 mmol/L (3.4-5.0); Sodium 128 mmol/L (137-145)
[2019-10-15] MEDS: hydrALAZINE HCL 25 MG TABLET PO ×2 (09:52→20:09)
[2019-10-15] MEDS: PANTOPRAZOLE 40 MG TABLET PO (09:52)
[2019-10-15] MEDS: METOPROLOL SUCCINATE EXT REL 100 MG TABCR PO (09:52)
[2019-10-15] MEDS: ISOSORBIDE MONONITRATE 60 MG TAB.ER.24H PO (09:52)
[2019-10-15] MEDS: CLOPIDOGREL BISULFATE 75 MG TABLET PO (09:52)
[2019-10-15] MEDS: DOCUSATE SODIUM 100 MG CAPSULE PO ×2 (09:52→20:09)
[2019-10-15] MEDS: ANASTROZOLE (*CHEMO) 1 MG TABLET PO (09:52)
[2019-10-15] MEDS: CYANOCOBALAMIN 1,000 MCG TABLET 1000 MCG PO (09:52)
[2019-10-15] MEDS: FUROSEMIDE 80 MG TABLET PO ×2 (09:52→20:07)
[2019-10-15] MEDS: GABAPENTIN 100 MG CAPSULE 200 MG PO ×3 (09:53→20:07)
[2019-10-15] MEDS: APIXABAN 2.5 MG TABLET PO ×2 (09:53→20:07)
[2019-10-15] MEDS: SEVELAMER CARBONATE 800 MG TABLET PO (09:53)
[2019-10-15] MEDS: polyethylene glycoL 3350 17 GM POWD.PACK PO (09:54)
[2019-10-15] MEDS: CHOLECALCIFEROL 1,000 UNIT TABLET 2000 UNITS PO (09:54)
[2019-10-15] MEDS: VITAMIN B CMPLX/VIT C/FOLIC AC 1 CAPSULE 1 CAP PO (09:54)
[2019-10-15] MEDS: cloNIDine HCL 0.1 MG TABLET PO ×2 (09:56→20:11)
[2019-10-15] MEDS: ATORVASTATIN 40 MG TABLET PO (20:08)
[2019-10-16 06:00] VITALS: BP 180/65; PULSE 73; RESP 18; TEMP 36.5; O2SAT 100
[2019-10-16 07:02] LABS: Glucose Point of Care 100 (65-105)
[2019-10-16] MEDS: FUROSEMIDE 80 MG TABLET PO (08:38)
[2019-10-16] MEDS: DOCUSATE SODIUM 100 MG CAPSULE PO (08:38)
[2019-10-16] MEDS: APIXABAN 2.5 MG TABLET PO (08:38)
[2019-10-16] MEDS: ANASTROZOLE (*CHEMO) 1 MG TABLET PO (08:38)
[2019-10-16] MEDS: CLOPIDOGREL BISULFATE 75 MG TABLET PO (08:38)
[2019-10-16] MEDS: CHOLECALCIFEROL 1,000 UNIT TABLET 2000 UNITS PO (08:38)
[2019-10-16] MEDS: CYANOCOBALAMIN 1,000 MCG TABLET 1000 MCG PO (08:38)
[2019-10-16] MEDS: SEVELAMER CARBONATE 800 MG TABLET PO (08:38)
[2019-10-16 08:39] VITALS: PULSE 73
[2019-10-16] MEDS: hydrALAZINE HCL 25 MG TABLET PO (08:39)
[2019-10-16] MEDS: ISOSORBIDE MONONITRATE 60 MG TAB.ER.24H PO (08:39)
[2019-10-16] MEDS: GABAPENTIN 100 MG CAPSULE 200 MG PO ×2 (08:39→12:26)
[2019-10-16] MEDS: PANTOPRAZOLE 40 MG TABLET PO (08:39)
[2019-10-16] MEDS: METOPROLOL SUCCINATE EXT REL 100 MG TABCR PO (08:39)
[2019-10-16] MEDS: VITAMIN B CMPLX/VIT C/FOLIC AC 1 CAPSULE 1 CAP PO (08:40)
[2019-10-16] MEDS: cloNIDine HCL 0.1 MG TABLET PO (08:45)
[2019-10-16] MEDS: polyethylene glycoL 3350 17 GM POWD.PACK PO (08:45)
--- NOTE | 2019-10-16 11:16 | WPDNEURORHBP ---
Subjective Date/time seen: 10/16/19 11:16 Interval history: this 74-year-old woman with the underlying end-stage renal disease on dialysis has been here after having had a right BKA she has done very well in over rehab and achieved the goals she is going to be discharged today to have the follow-up with the surgeon the primary care physician and the aquatic laborer and whoever has seen her before she came to us next She states that she has the medication at home she probably would not new any new prescription She denies any headache nausea vomiting chest pain shortness of breath fever chills sore throat and quite satisfied with the care she received here Review of Systems Review of Systems: All systems reviewed & are unremarkable except as noted in HPI and below Functional Status Ambulation Ability Ambulation Assistive Devices: Parallel Bars Transfers Ability Ability to Transfer In/Out of Chair: Minimum Assistance X 1 Exam Const: General: comfortable and no acute distress HENMT: General nose exam: Normal nares present Mouth: Yes moist mucous membranes Eyes: General: appearance normal, both eyes and all related structures Neck: Neck: supple and no JVD Resp: Effort & Inspection: normal respiratory effort Auscultation: clear to auscultation bilaterally Cardio: Rate: regular rate Rhythm: regular rhythm GI: GI Palp: Yes Soft to palpation Auscultation: normal bowel sounds Skin: General skin exam: normal color and no rashes or lesions noted Neuro: Other: patient remains awake and alert well oriented and overall physical state and the endurance has increased evidence of the underlying peripheral neuropathy and peripheral vascular disease remains stable Extrem: Other: right BKA is stable Psych: Mental Status: mental status grossly normal Objective Data Vital Signs Vital Signs: Vital Signs - 24 hr 10/15/19 14:00 10/15/19 16:30 10/15/19 16:45 Temperature 36.8 C Pulse Rate 96 75 74 Respiratory Rate 17 Blood Pressure 147/76 H 192/66 H 124/65 Pulse Oximetry 96 10/15/19 17:00 10/15/19 17:15 10/15/19 17:30 Temperature Pulse Rate 73 73 73 Respiratory Rate Blood Pressure 152/58 H 142/54 H 180/68 H Pulse Oximetry 10/15/19 17:45 10/15/19 18:00 10/15/19 18:15 Temperature Pulse Rate 73 75 71 Respiratory Rate Blood Pressure 175/63 H 181/76 H 110/41 L Pulse Oximetry 10/15/19 18:49 10/15/19 20:00 10/15/19 21:15 Temperature 36.7 C Pulse Rate 81 81 Respiratory Rate 18 Blood Pressure 181/38 H Pulse Oximetry 99 10/15/19 22:00 10/16/19 06:00 10/16/19 08:39 Temperature 36.7 C 36.5 C Pulse Rate 81 73 73 Respiratory Rate 18 18 Blood Pressure 151/52 H 180/65 H Pulse Oximetry 99 100 Intake/Output Intake/Output: Intake & Output 10/13/19 10/14/19 10/15/19 10/16/19 23:59 23:59 23:59 23:59 Intake Total 1270 840 360 540 Output Total 2400 Balance 1270 840 -2040 540 Meds/Results Medications: Active Medications Generic Name Dose Route Start Last Admin Trade Name Freq PRN Reason Stop Dose Admin Acetaminophen 500 mg 09/30/19 14:48 10/01/19 04:41 Tylenol Tablet PO 500 mg Q6H PRN Administration Pain (Scale Score 4-6) Hydrocodone Bitart/Acetaminophen 1 tab 09/30/19 14:48 10/16/19 08:37 [place] 7.5-325 Mg PO 1 tab Q4H PRN Administration Pain (Scale Score 7-10) Anastrozole 1 mg 10/01/19 09:00 10/16/19 08:38 Arimidex PO 10/31/19 09:01 1 mg DAILY MAYLIN Administration Apixaban 2.5 mg 09/30/19 17:00 10/16/19 08:38 Eliquis PO 2.5 mg BID MAYILN Administration Atorvastatin Calcium 40 mg 09/30/19 21:00 10/15/19 20:08 Lipitor PO 40 mg HS MAYLIN Administration Clonidine HCl 0.1 mg 09/30/19 21:00 10/16/19 08:45 Catapres PO 0.1 mg Q12HR MAYLIN Administration Clopidogrel Bisulfate 75 mg 10/01/19 09:00 10/16/19 08:38 Plavix PO 75 mg DAILY MAYLIN Administration Cyanocobalamin 1,000 mcg 10/01/19
--- NOTE | 2019-10-19 17:44 | DS_ITS ---
DATE OF DISCHARGE: 10/16/2019 DISCHARGE ACUTE REHAB DIAGNOSIS: Primary rehab impairment category of amputation of the lower extremity with etiological diagnosis of diabetic right foot infection with cellulitis and dry gangrene. DISCHARGE ACTIVE COMORBID CONDITIONS: 1. End-stage renal disease for which patient is on hemodialysis with temporary catheter at the right upper chest though has a permanent dialysis catheter in the left upper extremity, which has not been activated. 2. Coronary artery disease. 3. Peripheral vascular disease. 4. COPD. REASON FOR ADMISSION: A 74-year-old right-handed female presented to [facility] on 09/10/2019, regarding the concerns of progressive right lower extremity diabetic foot infection. She had an angiogram on 09/05/2019, but her right lower extremity digits were increasingly become necrotic, erythematous and painful. She was admitted and started on antibiotic that is vancomycin and Zosyn. 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 Transportation Program Director was following her for the hemodialysis recommendation. She was noted to have stage II wound to the right buttock. She underwent 4th and 5th toe amputation on the right side on 09/16/2019, but did not heal properly. Finally, had an angiogram on 09/21/2019, which documented occlusion of the right anterior and posterior tibial arteries for which she underwent right [id number] amputation. IV Zosyn was discontinued on 09/21. She had amputation on 09/27/2019, was maintain nonweightbearing to the right lower extremity and the left lower extremity wound was covered with a foam dressing. She was maintained on Eliquis and Plavix. Postoperatively, she has complained of severe pain, became anemic, continued on hemodialysis, remained hypertensive and also an electrolyte imbalance. In fact, her sodium was still running 125. She was discharged to us on Eliquis, Plavix. She has not traveled outside the [place] or to the areas or not in contact with any person with COVID. LEVEL OF FUNCTION AT THE TIME OF ADMISSION: She required setup for eating, supervision for oral hygiene, dependent for toileting, substantial assist for bathing, supervision for upper body dressing, dependent for lower body dressing, footwear, partial assistance for rolling in bed, sit to lying, lying to sit. She was dependent for sit to stand, chair transfer, toilet transfer. She was unable to car transfer, 10 feet walking, 50 feet walking with 2 turns, 150 feet walking, 10 feet on uneven surfaces, curb or step, 4 steps, 12 steps. She was unable to pickup any object and take the wheelchair to 150 feet. She required substantial assistance for the wheelchair for 50 feet. ANTICIPATED REHAB GOALS AT THE TIME OF ADMISSION: Were to make her independent eating and oral hygiene, required only partial assistance for toileting and bathing, become independent upper body dressing, partial assistance for lower body dressing, supervision for footwear, become independent rolling in bed, sit to lying, lying to sit, partial assistance for sit to stand, chair transfer, toilet transfer, car transfer, walking 10 feet, walking 10 feet on uneven surfaces, and picking up object. She will require substantial assist for walking 50 feet with 2 turns, 150 feet will not be applicable. She will remain dependent on curb or step, 4 steps or 12 steps, and she might become independent for wheelchair 50 and 150 feet. LEVEL OF FUNCTION AT THE TIME OF DISCHARGE: She became independent eating, oral hygiene. She required only setup for toileting, supervision for bathing, setup for upper body dressing, partial assistance for lower body dressing, remained dependent for footwear, became independent in rolling in bed, sit to lying, lying to sit, required partial assistance for sit to stand, supervi
== END 2019-10-16 13:15 | disposition home health service (06) | DRG 559 ==
PROVIDERS: Family Medicine; Hospitalist; Internal Medicine Nephrology; Admitting Provider Psychiatry & Neurology Neurology; Family Provider Family Medicine; PCP Surgery Vascular Surgery; Visit Provider Psychiatry & Neurology Neurology
DX: Z47.81 Encounter for orthopedic aftercare following surgical amputation (principal); N18.6 End stage renal disease; I13.2 Hypertensive heart and chronic kidney disease with heart failure and with stage 5 chronic kidney disease, or end stage renal disease; J96.10 Chronic respiratory failure, unspecified whether with hypoxia or hypercapnia; L97.429 Non-pressure chronic ulcer of left heel and midfoot with unspecified severity; L98.418 Non-pressure chronic ulcer of buttock with other specified severity; I96 Gangrene, not elsewhere classified; D63.1 Anemia in chronic kidney disease; E11.52 Type 2 diabetes mellitus with diabetic peripheral angiopathy with gangrene; E11.22 Type 2 diabetes mellitus with diabetic chronic kidney disease; E11.621 Type 2 diabetes mellitus with foot ulcer; E11.649 Type 2 diabetes mellitus with hypoglycemia without coma; E11.622 Type 2 diabetes mellitus with other skin ulcer; E11.42 Type 2 diabetes mellitus with diabetic polyneuropathy; E78.5 Hyperlipidemia, unspecified; E21.3 Hyperparathyroidism, unspecified; E66.9 Obesity, unspecified; I25.2 Old myocardial infarction; I25.10 Atherosclerotic heart disease of native coronary artery without angina pectoris; I50.9 Heart failure, unspecified; J44.9 Chronic obstructive pulmonary disease, unspecified; R07.81 Pleurodynia; Z68.31 Body mass index [BMI] 31.0-31.9, adult; Z99.2 Dependence on renal dialysis; Z85.3 Personal history of malignant neoplasm of breast; Z95.5 Presence of coronary angioplasty implant and graft; Z87.891 Personal history of nicotine dependence; Z79.02 Long term (current) use of antithrombotics/antiplatelets; Z79.01 Long term (current) use of anticoagulants; Z79.4 Long term (current) use of insulin; Z89.511 Acquired absence of right leg below knee
CPT/HCPCS: 36415; 71110; 80048; 80069; 83036; 85025; 86706; 87340; 93971; 97110; 97163; 97167; 97530; 97535; 97542; A9270; G0257; J1644; J7030; Q5106